=== PATIENT | male | born 1955 | race Caucasian/White ===

== ENCOUNTER 2019-11-23 16:56 | Outpatient (CLI) | payer MEDICARE, MEDICAID, SELFPAY ==
--- NOTE | ~2019-11-23 | XR_ITS ---
EXAMINATION: XR shoulder RT min 2V EXAM DATE: 11/23/2019 17:18 INDICATION: No known recent injury provided at this time. Pain of the right shoulder. Onset of sympto ms 3 weeks ago. TECHNIQUE: The following right shoulder projections obtained: frontal projection with internal rotati on, frontal projection with external rotation, Grashey, and scapular Y view (4+ views). There is no prior study for comparison. FINDINGS: No evidence of right shoulder rotator cuff calcific tendinosis. There is mild glenohumera l and acromioclavicular joint primary osteoarthritis. The glenoid does have unusual congenital unusu al shape to it. There are no acute fractures or dislocations identified. There is no subcutaneous ga s. The soft tissue is unremarkable. There are no radiopaque foreign bodies. IMPRESSION: 1. Congenitally unusual glenoid shape. 2. Mild right shoulder osteoarthritis. Reviewed, dictated and finalized at location A.
== END 2019-11-23 16:57 | disposition home or self-care (01) ==
PROVIDERS: PCP Nurse Practitioner; Visit Provider Nurse Practitioner
DX: M25.511 Pain in right shoulder (principal)
CPT/HCPCS: 73030

== ENCOUNTER 2020-08-31 09:41 | Outpatient (CLI) | payer MEDICARE, SELFPAY ==
[2020-09-01 18:11] LABS: SARS-CoV-2 RNA PCR Negative
== END 2020-08-31 09:42 | disposition home or self-care (01) ==
LOC: CHSLAB 09:44
PROVIDERS: PCP Nurse Practitioner; Visit Provider Nurse Practitioner
DX: J02.9 Acute pharyngitis, unspecified (principal); Z20.822 Contact with and (suspected) exposure to COVID-19
CPT/HCPCS: C9803; U0003; U0005

== ENCOUNTER 2020-10-04 09:29 | Outpatient (CLI) | payer MEDICARE, MEDICAID, SELFPAY ==
--- NOTE | ~2020-10-04 | US_ITS ---
EXAMINATION: US scrotum doppler EXAM DATE: 10/04/2020 10:31 INDICATION: Left groin pain. TECHNIQUE: Multiple grayscale and Doppler images of the testicles and scrotum were obtained bilateral ly. There is no prior study for comparison. FINDINGS: The left inguinal/groin region was scanned and is sonographically unremarkable, no evidence of hernia during Valsalva maneuver Right testicle measures 4.8 x 2.7 x 3.4 cm and is morphologically normal. Low resistance Doppler is[place] w confirmed. The epididymis is unremarkable. There is no hydrocele or varicocele. Left testicle measures 3.5 x 2.0 x 3.8 cm and is morphologically normal. Low resistance Doppler flow confirmed. The epididymis is unremarkable. There is no hydrocele or varicocele. IMPRESSION: Unremarkable testicular/scrotal ultrasound exam. Reviewed, dictated and finalized at location B. WAY HEAD TENDER
== END 2020-10-04 09:30 | disposition home or self-care (01) ==
LOC: CHSIMG 09:31
PROVIDERS: PCP Physician Assistant; Visit Provider Physician Assistant
DX: R10.32 Left lower quadrant pain (principal)
CPT/HCPCS: 76870; 93976

== ENCOUNTER 2020-11-21 12:40 | Outpatient (CLI) | payer MEDICARE, MEDICAID, SELFPAY ==
--- NOTE | ~2020-11-21 | XR_ITS ---
EXAMINATION: XR hip LT min 2V DATE: 11/21/2020 13:02 INDICATION: Chronic left hip pain. TECHNIQUE: 2 views of left hip were obtained. COMPARISON: None. FINDINGS: Bone alignment is normal. No fracture. Left hip joint space is normal. IMPRESSION: 1. Normal left hip. Reviewed, dictated and finalized at location A. IMPRESSION: 1. Normal left hip.
== END 2020-11-21 12:41 | disposition home or self-care (01) ==
LOC: CHSIMG 12:42
PROVIDERS: PCP Physician Assistant; Visit Provider Physician Assistant
DX: M25.552 Pain in left hip (principal)
CPT/HCPCS: 73502

== ENCOUNTER 2021-02-24 09:00 | Outpatient (CLI) | payer MEDICARE, MEDICAID, SELFPAY ==
--- NOTE | ~2021-02-24 | XR_ITS ---
EXAMINATION: XR lumbar spine 2-3V DATE: 02/24/2021 10:29 INDICATION: Lumbar radiculopathy TECHNIQUE: Anteroposterior and lateral views of the lumbar spine, and cone-down lateral view of the l umbosacral junction were obtained. COMPARISON: 08/05/2017 FINDINGS: Bone alignment is normal. There is no fracture. Mild chronic anterior wedging is noted at L 4. There is moderate loss of intervertebral disc space height throughout the lumbar spine. Moderate f acet osteoarthritis is present in the lower lumbar spine. Small degenerative osteophytes project from the anterior endplates of multiple vertebral bodies. The bowel gas pattern is normal. A moderate vol ume of colonic stool is present. IMPRESSION: 1. Mild to moderate lumbar spondylosis and chronic mild anterior wedging of L4 without acute findings or significant interval change. Reviewed, dictated and finalized at location A.
--- NOTE | ~2021-02-24 | MR_ITS ---
EXAMINATION: MR lumbar spine wo con DATE: 02/24/2021 10:30 INDICATION: Lumbar radiculopathy. TECHNIQUE: Magnetic resonance imaging (MRI) of the lumbar spine was performed without intravenous con trast. Sequences included sagittal T2-weighted FSE, sagittal T2-weighted FS FSE, sagittal T1-weighted FSE, and axial T2-weighted FSE. COMPARISON: Lumbar spine radiographs 02/24/2021 FINDINGS: There is 3 mm retrolisthesis of L2 on L3. There is mild chronic anterior wedging of T12, L1 , L2, L3, and L4 vertebral bodies. There is mildly decreased disc height at L2-L3, severely decreased disc height at L3-L4, moderately decreased disc height at L4-L5, and severely decreased disc height at L5-S1 with endplate remodeling. The distal spinal cord signal intensity is normal. The conus medul gregorio is at L1. The following disc levels are specifically discussed: L1-L2: The disc does not extend beyond the endplate margin. There is mild bilateral facet joint osteo arthritis. There is no neural foraminal stenosis. There is no central canal stenosis. L2-L3: The disc is bulging and has an annular fissure. There is mild bilateral facet joint osteoarthr itis. There is mild bilateral neural foraminal stenosis. There is mild central canal stenosis. L3-L4: The disc is bulging and has an annular fissure. There is moderate bilateral facet joint osteoa rthritis. There is moderate bilateral neural foraminal stenosis. There is mild central canal stenosis . L4-L5: The disc is bulging and has an annular fissure. There is severe bilateral facet joint osteoart hritis. There is moderate bilateral neural foraminal stenosis. There is moderate central canal stenos is. L5-S1: The disc is bulging and has an annular fissure. There is severe bilateral facet joint osteoart hritis. There is moderate bilateral neural foraminal stenosis. There is mild central canal stenosis. There is moderate stenosis of the lateral recesses. IMPRESSION: 1. Severe lumbar spondylosis. Reviewed, dictated and finalized at location A.
== END 2021-02-24 09:01 | disposition home or self-care (01) ==
LOC: CHSIMG 09:06
PROVIDERS: PCP Nurse Practitioner Adult Health; Visit Provider Nurse Practitioner Adult Health
DX: M54.16 Radiculopathy, lumbar region (principal)
CPT/HCPCS: 72100; 72148

== ENCOUNTER 2021-03-19 13:03 | Outpatient (RCR) | payer MEDICARE, MEDICAID, SELFPAY ==
--- NOTE | 2021-03-19 14:05 | PTOPEVAL ---
Thank you for referring Jace Lopez Jr. to [facility].? The patient is scheduled to be seen for therapy? ____x/week for ___ weeks. Please review, sign, date and return this plan of care LORNA. I agree with and certify that the following plan of care is medically necessary. Referring Physician Date Admitting Provider: Attending Provider: Rachel Mcadams, RETURNS PROCESSOR Referring Provider: *PT Outpatient Evaluation Start: 03/19/21 13:01 Freq: Status: Active Protocol: Document 03/19/21 13:01 ACR (Rec: 03/19/21 14:04 ACR [id number]) Therapy Assessment Status Assessment Status Assessment Status Evaluation Evaluation Information Problem Diagnosis L hip pain Onset 08/19/20 Subjective Information Patient states that he is Query Text:As Reported By Patient/ having groin pain and is Family unsure why. The patient states that he has gone to many doctors and has no idea why he is having the pain. The patient states that the pain is waking him up at night. 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 Lifting is the biggest difficulty. He states that if he puts a pillow between his legs makes him feel better. He states the pain went away for a bit and now it is back. He states that leaning forward feels He states he would like to get his pain to go away. Prior Level of Function Activity Level (Last 3 Months) Occupation retired Hand Dominance Left Activity of Daily Living Ability Independent Indoor/Home Mobility Independent Community Mobility Independent Stairs Ability Independent Functional Cognition (Planning, Shopping Independent , Taking Medications) Cooking Yes Cleaning Yes Laundry Yes Shopping Yes Driving Yes Pain Assessment Timing of Pain Assessment Timing of Pain Assessment Assessment Pain Scale Pain Scale Used Numeric (1 - 10) Self Report Pain Assessment Left Groin Reported Pain Level 2 Lowest Pain Intensity 0 Greatest Pain Intensity 2 Pain Score Pain Score 2: Self Report Interventions Used Interventions U
--- NOTE | 2021-04-16 09:36 | PTOPEVAL ---
Thank you for referring Jace Lopez Jr. to [facility].? The patient is scheduled to be seen for therapy? ____x/week for ___ weeks. Please review, sign, date and return this plan of care LORNA. I agree with and certify that the following plan of care is medically necessary. Referring Physician Date Admitting Provider: Attending Provider: Rachel Mcadams, BIRTHING NURSE Referring Provider: *PT Outpatient Evaluation Start: 03/19/21 13:01 Freq: Status: Active Protocol: Document 04/16/21 07:37 ACR (Rec: 04/16/21 08:36 ACR [id number]) Therapy Assessment Status Assessment Status Assessment Status Discharge Evaluation Information Problem Diagnosis L hip pain Onset 08/19/20 Subjective Information Patient states that his pain Query Text:As Reported By Patient/ is slightly better, but is Family constantly having to lift his mother and believes that is why his pain continues to be there. He feels that therapy has helped him, but he can do the exercises at home. He is going to work on body mechanics with lifting that he has been taught at therapy and if they pain continues he is going to go back to the doctor. Pain Assessment Timing of Pain Assessment Timing of Pain Assessment Assessment Pain Scale Pain Scale Used Numeric (1 - 10) Self Report Pain Assessment Left Groin Reported Pain Level 1 Greatest Pain Intensity 4 Pain Score Pain Score 1: Self Report Interventions Used Interventions Used By Clinicians Activity or ADL's,Exercise, Traction Lower Extremity Muscle Strength Testing Hip Strength Right Hip Flexion Strength 5 Normal Hip Abduction Strength 4+ Good + Left Hip Flexion Strength 5 Normal Hip Abduction Strength 4+ Good + Knee Strength Right Knee Flexion Strength 5 Normal Knee Extension Strength 5 Normal Left Knee Flexion Strength 5 Normal Knee Extension Strength 5 Normal General Exercise General Exercises Exercise Description - [place] m trunk Query Text:Record Sets, Reps, stabilization level 1, 25 Resistance, and Position minutes - nustep level 5, 10 minutes PT Clinical Summary Clinical Summary Protocol: PTEVCODE PT Clinical Summary Patient is a 65 year old male that has participated in 8
== END 2021-04-16 10:35 | disposition home or self-care (01) ==
LOC: CHSPT 13:03
PROVIDERS: Visit Provider Nurse Practitioner Adult Health
DX: M48.07 Spinal stenosis, lumbosacral region (principal)
CPT/HCPCS: 97012; 97014; 97110; 97161; G0283

== ENCOUNTER 2021-04-20 14:40 | Outpatient (CLI) | payer MEDICARE, MEDICAID, SELFPAY ==
--- NOTE | ~2021-04-20 | XR_ITS ---
EXAMINATION:XR_CERV2-3V_CR DATE: 04/20/2021 14:59 INDICATION: Acute neuropathy of the bilateral upper extremities TECHNIQUE: AP, lateral and odontoid views of the cervical spine are provided. COMPARISON: None FINDINGS: Straightening of the normal cervical lordosis. Odontoid is intact. Normal atlantoaxial interval. No spondylolisthesis or facet subluxation. Vertebral body heights are normal. Moderate disc height loss at C5-C6 with moderate left and severe right uncovertebral osteoarthritis and degenerative endplate o steophytes posteriorly which result in mild central canal stenosis at this level. Mild disc height lo ss at C4-C5. Prevertebral soft tissues are normal. IMPRESSION: 1. Cervical spondylosis moderate at C5-C6, otherwise mild. Reviewed, dictated and finalized at location A.
== END 2021-04-20 14:41 | disposition home or self-care (01) ==
LOC: CHSIMG 14:43
PROVIDERS: PCP Nurse Practitioner; Visit Provider Nurse Practitioner
DX: G56.93 Unspecified mononeuropathy of bilateral upper limbs (principal)
CPT/HCPCS: 72040

== ENCOUNTER 2021-05-31 01:06 | Day surgery (SDC) | payer OTHER, SELFPAY ==
[2021-05-18 13:49] VITALS: BMI 25.7
[2021-05-31 09:59] VITALS: BMI 25.7
[2021-05-31 10:00] VITALS: BP 152/66; PULSE 42; RESP 16; TEMP 36.2; O2SAT 99
--- NOTE | 2021-05-31 10:08 | P.PNAN_ITS ---
Anes - Initial Pre Proc Eval Procedure: Operation Date: 05/31/21 10:00 Proposed Procedures p Screening Colonoscopy - Freedom Gaspar DO Date/Time: 05/31/21 10:08 Surgeon: Freedom Gaspar DO Pre Op Diagnosis: neoplasm screening Patient Data Age: 65 Gender: M Height: 1.83 m Weight: 86.1 kg Last Vital Signs Temp 36.2 C L 05/31/21 10:00 Pulse 42 L 05/31/21 10:00 Resp 16 05/31/21 10:00 BP 152/66 H 05/31/21 10:00 Pulse Ox 99 05/31/21 10:00 Allergies Allergy/AdvReac Type Severity Reaction Status Date / Time cat dander Allergy Severe Anaphylactic Verified 05/31/21 09:54 Shock amoxicillin Allergy Intermediate Hives Verified 05/31/21 09:54 Home Medications Medication Instructions Recorded Confirmed Type glipizide 10 mg PO BID 05/18/21 05/31/21 History ibuprofen 800 mg PO PRN PRN 05/18/21 05/31/21 History lisinopril 5 mg PO DAILY 05/18/21 05/31/21 History metformin 1,000 mg PO BID 05/18/21 05/31/21 History pravastatin 20 mg PO HS 05/18/21 05/31/21 History Patient hx anesthesia problems: none Family hx anesthesia problems: none Results Review: All pre-operative results and documents have been reviewed as part of the pre-operative evaluation. [facility] Past Medical History Medical History (Updated 05/31/21 @ 10:10 by Paul Goodman MD) Back pain Bradycardia Diabetes HTN (hypertension) Hyperlipidemia Social History Social History (System 12/02/19 @ 16:00 by Natali Crouch) Smoking packs per day: 0.25 Smoking cigarettes per day: 5.0 Years smoked: 15 Smoking pack-years: 3.75 Smoking status: Current every day smoker Tobacco type: cigarettes Alcohol intake: never Substance use: never Substance use type: does not use Living arrangements: with family Spiritual care concerns: No Anes - Eval Final PreProcedure Day of Procedure 05/31/21 10:08 Patient weight: normal Heart: regular rate and rhythm Lungs: clear to auscultation and normal air movement Airway: Mallampati scale class II Neurological: alert and oriented Last oral intake: >/= 8 hours ASA classification: III Emergent: no Anesthetic plan: proceed Anesthesia type and monitoring: general GIVS Results Review: All pre-operative results and documents have been reviewed as part of the pre-operative evaluation. Informed Consent: The patient's anesthetic plan and its attendant risks and benefits were discussed with the patient/family/POA. Questions were solicited and answers provided to the satisfaction of the patient/family/POA.
[2021-05-31] MEDS: LACTATED RINGERS 1,000 ML 150 ML IV CONT (10:17)
[2021-05-31 10:23] LABS: Glucose Point of Care 114 mg/dl (65-105)
--- NOTE | 2021-05-31 10:54 | PM.IMHP ---
H&P: HPI History of Present Illness Date/Time: 05/31/21 10:54 Chief Complaint: history of colon polyps, family history of colon polyps Narrative: this is a 65-year-old man who presents for colonoscopy. His last colonoscopy was several years ago and he thinks a couple polyps were removed. His mom also has a history of multiple colon polyps. He denies any hematochezia or melena and denies family history of colon cancer. Review of Systems Review of Systems: All systems reviewed & are unremarkable except as noted in HPI and below Constitutional: Constitutional: Denies chills, Denies fever(s), Denies headache(s) and Denies weight loss Eyes: Eyes: Denies change in vision ENT: Denies dizziness, Denies headache(s), Denies neck mass and Denies throat swelling Cardiovascular: Cardiovascular: Denies chest pain, Denies lightheadedness and Denies dyspnea Respiratory: Respiratory: Denies cough, Denies dyspnea and Denies wheezing Gastrointestinal: Gastrointestinal: Denies abdominal pain, Denies change in bowel habits, Denies nausea and Denies vomiting Genitourinary: Genitourinary: Denies hematuria and Denies dysuria Musculoskeletal: Musculoskeletal: Reports as per HPI Integumentary/Breasts: Skin/Breast: Reports as per HPI Neurologic: Denies dizziness and Denies headache(s) Allergic/Immunologic: Allergic/Immunologic: Denies throat swelling and Denies wheezing [facility] Past Medical History Medical History (Updated 05/31/21 @ 10:56 by Freedom Gaspar DO) Back pain Bradycardia Diabetes HTN (hypertension) Hyperlipidemia Social History Social History (System 12/02/19 @ 16:00 by Natali Crouch) Smoking packs per day: 0.25 Smoking cigarettes per day: 5.0 Years smoked: 15 Smoking pack-years: 3.75 Smoking status: Current every day smoker Tobacco type: cigarettes Alcohol intake: never Substance use: never Substance use type: does not use Living arrangements: with family Spiritual care concerns: No Meds Home Medications and Allergies Home Medications Medication Instructions Recorded Confirmed Type glipizide 10 mg PO BID 05/18/21 05/31/21 History ibuprofen 800 mg PO PRN PRN 05/18/21 05/31/21 History lisinopril 5 mg PO DAILY 05/18/21 05/31/21 History metformin 1,000 mg PO BID 05/18/21 05/31/21 History pravastatin 20 mg PO HS 05/18/21 05/31/21 History Allergies Allergy/AdvReac Type Severity Reaction Status Date / Time cat dander Allergy Severe Anaphylactic Verified 05/31/21 09:54 Shock amoxicillin Allergy Intermediate Hives Verified 05/31/21 09:54 Vital Signs Vital Signs - 24 hr 05/31/21 10:00 Temperature 36.2 C L Pulse Rate 42 L Respiratory Rate 16 Blood Pressure 152/66 H Pulse Oximetry 99 Exam Const: General: no acute distress and alert Orientation/consciousness: patient oriented x3 HENMT: Head: normocephalic and atraumatic Ears: hearing grossly normal bilaterally General nose exam: Normal nares present Mouth: Yes Normal oral and palatal mucosa present Eyes: Periorbital: periorbital findings normal Sclera: sclerae normal EOM: EOMs intact bilaterally Neck: Neck: normal visual inspection, no lymphadenopathy and trachea midline Chest: Chest palpation & inspection: normal inspection of the chest Resp: Effort & Inspection: normal respiratory effort Auscultation: clear to auscultation bilaterally Cardio: Jugular venous distension: no JVD Rate: regular rate Rhythm: regular rhythm Heart sounds: S1 normal heart sound present and S2 normal heart sound present Peripheral pulses: Peripheral pulses 2+ throughout GI: Inspection: normal to inspection GI Palp: Yes Soft to palpation, No Tenderness to palpation present (GI), No Guarding due to palpation present (GI) and No Rebound tenderness present Percussion: Yes normal to percussion Auscultation: normal bowel sounds : General: Yes no CVA tenderness Back/Spine/Pelvis: Back: no CVA tenderness Neuro: G
[2021-05-31 11:50] VITALS: BP 80/44; PULSE 49; RESP 15; O2SAT 95
[2021-05-31 12:00] VITALS: BP 104/66; PULSE 56; RESP 21; O2SAT 99
[2021-05-31 12:10] VITALS: BP 126/66; PULSE 43; RESP 17; O2SAT 99
== END 2021-05-31 12:26 | disposition home or self-care (01) ==
PROVIDERS: PCP Nurse Practitioner; Visit Provider Surgery
PROC: 0DJD8ZZ Inspection of Lower Intestinal Tract, Via Natural or Artificial Opening Endoscopic (ICD-10-PCS; CPT 45378; principal; 2021-05-31 10:00)
DX: Z12.11 Encounter for screening for malignant neoplasm of colon (principal); D12.2 Benign neoplasm of ascending colon; D12.3 Benign neoplasm of transverse colon; D12.4 Benign neoplasm of descending colon; D12.5 Benign neoplasm of sigmoid colon; D12.8 Benign neoplasm of rectum; K62.89 Other specified diseases of anus and rectum; Z83.71 Family history of colonic polyps; I10 Essential (primary) hypertension; E11.9 Type 2 diabetes mellitus without complications; E78.5 Hyperlipidemia, unspecified; F17.210 Nicotine dependence, cigarettes, uncomplicated; Z79.84 Long term (current) use of oral hypoglycemic drugs
CPT/HCPCS: 45385; 82948; 88305; J2704; J7120

== ENCOUNTER 2021-10-19 18:18 | Emergency (ER) | payer OTHER, SELFPAY ==
[2021-10-19 18:25] VITALS: BP 177/75; PULSE 44; RESP 20; TEMP 35.9; O2SAT 99
--- NOTE | 2021-10-19 18:38 | ECG_ITS ---
Measurements Intervals [place] Rate: 39 P: 97 TN: 87 QRS: 75 QRSD: 109 T: 60 QT: 426 QTc: 347 Interpretive Statements ECTOPIC ATRIAL BRADYCARDIA OTHERWISE UNREMARKABLE ECG NO PREVIOUS TRACING FOR COMPARISON Electronically Signed On 10-20-2021 8:45:06 CDT by Vadim Samano M.D.
--- NOTE | 2021-10-19 18:46 | ED.GENADULT ---
HPI - General Adult General Chief complaint: Recheck/Abnormal Lab/Rx Stated complaint: high blood pressure Source: patient Mode of arrival: ambulatory History of Present Illness HPI narrative: Jace is a 65M with a PMH of inappropriate tachycardia (asymptomatic) that was seen in the emergency department for elevated BP. He reportedly had a BP of greater than 220 systolic and was referred here. He has not had any confusion, CP, SOB or syncope or lightheadedness. Related Data Home Medications Medication Instructions Recorded Confirmed glipizide 10 mg PO BID 05/18/21 10/19/21 ibuprofen 800 mg PO PRN PRN 05/18/21 10/19/21 lisinopril 5 mg PO DAILY 05/18/21 10/19/21 metformin 1,000 mg PO BID 05/18/21 10/19/21 pravastatin 20 mg PO HS 05/18/21 10/19/21 Allergies Allergy/AdvReac Type Severity Reaction Status Date / Time cat dander Allergy Severe Anaphylactic Verified 05/31/21 09:54 Shock amoxicillin Allergy Intermediate Hives Verified 05/31/21 09:54 Review of Systems Constitutional: Constitutional: Reports no additional constitutional complaints Eyes: Eyes: Reports no additional eye complaints ENT: Reports system reviewed and no additional complaints, except as documented Cardiovascular: Cardiovascular: Reports as per HPI Respiratory: Respiratory: Reports no additional respiratory complaints Gastrointestinal: Gastrointestinal: Reports no additional gastrointestinal complaints Genitourinary: Genitourinary: Reports no additional male genitourinary complaints Musculoskeletal: Musculoskeletal: Reports no additional musculoskeletal complaints Integumentary/Breasts: Skin/Breast: Reports system reviewed and no additional complaints, except as docu Neurologic: Reports system reviewed and no additional complaints, except as documented Psychiatric: Psychiatric: Reports no additional psychiatric complaints Endocrine: Endocrine: Reports no additional endocrine complaints Hematologic/Lymphatic: Hematologic/Lymphatic: Reports no additional hematologic/lymphatic complaints Allergic/Immunologic: Allergic/Immunologic: Reports no additional allergic/immunologic complaints [facility] Past Medical History Medical History Back pain Bradycardia Diabetes HTN (hypertension) Hyperlipidemia Social History Social History Smoking packs per day: 0.25 Smoking cigarettes per day: 5.0 Years smoked: 15 Smoking pack-years: 3.75 Smoking status: Current every day smoker Tobacco type: cigarettes Alcohol intake: never Substance use: never Substance use type: does not use Spiritual care concerns: No Exam Const: General: no acute distress and alert; No confusion Orientation/consciousness: patient oriented x3 Limitations: No altered mental status HENMT: Head: normal to inspection Eyes: Conjunctivae: conjunctivae normal Pupils: Equal, round and reactive pupils present Neck: Neck: normal visual inspection Chest: Chest palpation & inspection: normal inspection of the chest Resp: Effort & Inspection: normal respiratory effort Cardio: Rate: regular rate and bradycardic Rhythm: regular rhythm Heart sounds: no murmurs Skin: General skin exam: normal color Rashes: no rashes Neuro: General: patient oriented x3 and moves all extremities Extrem: General: normal to inspection Psych: Mental Status: mental status grossly normal Course Course Emergency Course: EKG showed sinus bradycardia with a rate of 39, normal axis, but no ST elevation/depression labs largely unremarkable. Vital Signs Vital signs: Vital Signs Temperature 96.6 F L 10/19/21 18:25 Pulse Rate 44 L 10/19/21 18:25 Respiratory Rate 20 10/19/21 18:25 Blood Pressure 177/75 H 10/19/21 18:25 Pulse Oximetry 99 10/19/21 18:25 Temperature 96.6 F L 10/19/21 18:25 Pulse Rate 42 L 10/19/21 19:22 Respiratory
--- NOTE | 2021-10-19 19:04 | PC.NURSE ---
report to leif huff. no concerns or questions.
[2021-10-19 19:12] LABS: Anion Gap 9 mmol/L (8-16); Blood Urea Nitrogen 13 mg/dL (7-18); Calcium 9.3 mg/dL (8.5-10.1); Carbon Dioxide 28 mmol/L (21-32); Chloride 101 mmol/L (98-108); Estimated CRCL calculation 63 ml/min; Estimated Glomerular Filt Rate > 60; Glucose 121 mg/dL (70-99); Osmolality Calculated 287 mOsm/kg (285-295); Potassium 4.4 mmol/L (3.5-5.1); Sodium 138 mmol/L (136-145); Troponin I 8.1 ng/L (0.00-60.4)
[2021-10-19 19:22] VITALS: BP 134/80; PULSE 42; RESP 18; O2SAT 98
[2021-10-19] MEDS: amLODIPine BESYLATE 5 MG TABLET PO (19:32)
[2021-10-19 19:47] VITALS: BP 157/84; PULSE 44; RESP 20; TEMP 36.4; O2SAT 98
[2021-10-19 19:49] VITALS: BP 157/84; PULSE 44
== END 2021-10-19 19:50 | disposition home or self-care (01) ==
PROVIDERS: Emergency Provider Family Medicine; PCP Nurse Practitioner
DX: I10 Essential (primary) hypertension (principal); E11.9 Type 2 diabetes mellitus without complications; E78.5 Hyperlipidemia, unspecified; F17.200 Nicotine dependence, unspecified, uncomplicated
CPT/HCPCS: 36415; 80048; 84484; 93005; 99284; A9270

== ENCOUNTER 2022-04-19 09:17 | Outpatient (CLI) | payer OTHER, SELFPAY ==
--- NOTE | ~2022-04-19 | CT_ITS ---
EXAMINATION: CT brain wo con DATE: 04/19/2022 10:01 INDICATION: Left mastoid tenderness for 3 months. Preauricular cellulitis TECHNIQUE: Computed tomography (CT) of the head was performed without intravenous contrast. The mA wa s adjusted according to patient size. Iterative reconstruction technique was employed. Exam dose: 60 5.33 mGy-cm total exam DLP. COMPARISON: None FINDINGS: No intracranial mass lesion or hemorrhage or cerebrovascular accident. No midline shift or mass effect effect. Normal ventricular size. Normal lowe-white matter differentiation. No subdural or epidural hematoma. The orbital contents appear normal. Included soft tissues at the ears appear unremarkable. Normal development and aeration of the mastoid air cells is noted bilaterally. There is patchy soft tissue thickening of the ethmoid air cells bilaterally. Mild right and minimal l eft frontal mucoperiosteal soft tissue thickening. The sphenoid sinuses superior aspect of the maxill devon sinuses are unremarkable. No fracture or bone destruction of the cranial vault. IMPRESSION: Normal mastoid air cells and mastoid process is; no skull fracture or bone destruction Mild bilateral frontal sinus and patchy bilateral ethmoid soft tissue thickening No significant intracranial abnormality Reviewed, dictated and finalized at Location A. Reviewed, dictated and finalized at location B. IMPRESSION: Normal mastoid air cells and mastoid process is; no skull fracture or bone destruction Mild bilateral frontal sinus and patchy bilateral ethmoid soft tissue thickenin g No significant intracranial abnormality
== END 2022-04-19 09:18 | disposition home or self-care (01) ==
LOC: CHSIMG 09:19
PROVIDERS: PCP Physician Assistant; Visit Provider Physician Assistant
DX: L03.211 Cellulitis of face (principal)
CPT/HCPCS: 70450

== ENCOUNTER 2023-10-01 08:49 | Outpatient (CLI) | payer OTHER, SELFPAY ==
[2023-10-01 09:06] LABS: Basophils Absolute Auto 0.04 K/mm3 (0.00-0.10); Basophils Percent Auto 0.7 % (0.0-1.0); Eosinophils Absolute Auto 0.53 K/mm3 (0.02-0.50); Eosinophils Percent Auto 8.9 % (1.0-6.0); Hematocrit 39.6 % (37.0-46.0); Hemoglobin 13.1 g/dL (12.4-15.3); Immature Granulocyte Absolute 0.01 K/mm3 (0.00-0.00); Immature Granulocyte Percent A 0.2 % (0.0-0.0); Lymphocytes Percent Auto 38.7 % (18.0-42.0); Mean Corpuscular HGB Conc 33.1 g/dL (32.0-36.0); Mean Corpuscular Hemoglobin 29.6 pg (27.0-31.0); Mean Corpuscular Volume 89.4 fL (78.0-102.0); Mean Platelet Volume 10.5 fl (8.7-11.0); Monocytes Absolute Auto 0.58 K/mm3 (0.10-0.90); Monocytes Percent Auto 9.7 % (2.0-11.0); Neutrophils Absolute Auto 2.5 K/mm3 (1.7-7.2); Neutrophils Percent Auto 41.8 % (50.0-70.0); Platelet Count Result 171 K/mm3 (150-420); Red Blood Count 4.43 M/mm3 (4.70-6.10); Red Cell Distribution Width 12.9 % (11.6-14.4)
[2023-10-01 10:07] LABS: Alanine Aminotransferase 25 U/L (16-63); Albumin Level 4.1 g/dL (3.4-5.0); Alkaline Phosphatase 58 U/L (46-116); Anion Gap 7 mmol/L (8-16); Aspartate Amino Transferase 13 U/L (15-37); Bilirubin,Total 0.3 mg/dL (0.00-1.00); Blood Urea Nitrogen 19 mg/dL (7-18); Carbon Dioxide 30 mmol/L (21-32); Chloride 103 mmol/L (98-108); Cholesterol 138 mg/dL (0-200); Estimated Glomerular Filt Rate > 60; Glucose 85 mg/dL (70-99); HDL Direct 49 mg/dL (40-60); LDL Cholesterol Calculated 70 mg/dL (<130); Osmolality Calculated 291 mOsm/kg (285-295); Potassium 4.4 mmol/L (3.5-5.1); Prostate Specific Antigen 2.5 ng/mL (< OR = 4.0); Sodium 140 mmol/L (136-145); Thyroid Stimulating Hormone 1.47 uIU/mL (0.36-3.74); Total Protein 6.3 g/dL (6.4-8.2); Triglycerides 95 mg/dL (0-150)
== END 2023-10-01 08:50 | disposition home or self-care (01) ==
PROVIDERS: PCP Physician Assistant; Visit Provider Physician Assistant
DX: E11.65 Type 2 diabetes mellitus with hyperglycemia (principal); E78.5 Hyperlipidemia, unspecified; I10 Essential (primary) hypertension; Z12.5 Encounter for screening for malignant neoplasm of prostate; Z13.31 Encounter for screening for depression
CPT/HCPCS: 36415; 80053; 80061; 83036; 84153; 84443; 85025; G0103

== ENCOUNTER 2024-02-03 08:42 | Outpatient (CLI) | payer OTHER, SELFPAY ==
[2024-02-03 09:08] LABS: Hematocrit 38.1 % (37.0-46.0); Hemoglobin 12.7 g/dL (12.4-15.3); Mean Corpuscular HGB Conc 33.3 g/dL (32-36); Mean Corpuscular Hemoglobin 29.6 pg (27.0-31.0); Mean Corpuscular Volume 88.8 fL (78.0-102.0); Mean Platelet Volume 10.9 fl (8.7-11.0); Platelet Count Result 159 K/mm3 (150-420); Red Blood Count 4.29 M/mm3 (4.70-6.10); Red Cell Distribution Width 13.1 % (11.6-14.4); White Blood Count 7.1 K/mm3 (4.8-10.8)
[2024-02-03 09:27] LABS: Hemoglobin A1C 6.6 % (<5.7)
[2024-02-03 10:00] LABS: Alanine Aminotransferase 41 U/L (16-63); Alkaline Phosphatase 81 U/L (46-116); Anion Gap 9 mmol/L (4-12); Aspartate Amino Transferase 35 U/L (15-37); Bilirubin,Total 0.5 mg/dL (0.00-1.00); Blood Urea Nitrogen 16 mg/dL (7-18); Calcium 9.2 mg/dL (8.5-10.1); Carbon Dioxide 28 mmol/L (21-32); Chloride 101 mmol/L (98-108); Cholesterol 117 mg/dL (0-200); Estimated Glomerular Filt Rate > 60; Glucose 98 mg/dL (70-99); HDL Direct 32 mg/dL (40-60); LDL Cholesterol Calculated 66 mg/dL (<130); Osmolality Calculated 287 mOsm/kg (285-295); Potassium 4.6 mmol/L (3.5-5.1); Sodium 138 mmol/L (136-145); Thyroid Stimulating Hormone 2.02 uIU/mL (0.36-3.74); Total Protein 6.4 g/dL (6.4-8.2); Triglycerides 96 mg/dL (0-150)
[2024-02-03 10:29] LABS: Band Neutrophils Percent 0 % (0-6); Basophils Absolute Manual 0.07 K/mm3 (0-0.1); Basophils Percent Manual 1 % (0-1); Eosinophils Absolute Manual 0.14 K/mm3 (0.02-0.50); Eosinophils Percent Manual 2 % (1-6); Lymphocytes Absolute Manual 3.69 K/mm3 (1.1-4.5); Lymphocytes Percent Manual 52 % (18-44); Monocytes Absolute Manual 0.42 K/mm3 (0.1-0.90); Monocytes Percent Manual 6 % (3-9); Neutrophils Absolute Manual 2.76 K/mm3 (1.3-6.7); Neutrophils Percent Manual 39 % (46-73); Platelet Estimate Adequate (Adequate); Total Cells Counted 100
[2024-02-04 08:54] LABS: T4 Thyroxine 9.8 mcg/dL (4.9-10.5)
[2024-02-04 09:54] LABS: Vitamin D 25 Hydroxy 25 ng/mL (30-100)
== END 2024-02-03 08:43 | disposition home or self-care (01) ==
DX: I10 Essential (primary) hypertension (principal); E11.9 Type 2 diabetes mellitus without complications; E78.5 Hyperlipidemia, unspecified; E55.9 Vitamin D deficiency, unspecified
CPT/HCPCS: 36415; 80053; 80061; 82306; 83036; 84436; 84443; 85025

== ENCOUNTER 2024-04-13 08:58 | Outpatient (CLI) | payer OTHER, SELFPAY ==
--- NOTE | 2024-04-13 | PFT_ITS ---
This report was originally signed by Dr. Janeen Gusman on 04/20/242011. PFT Procedure Performed PFT Procedure Performed Spirometry with Pre/Post Bronchodilator Plethysmography (Lung Vol) Diffusing Cap (DLCO) Flow Vol Loop PFT Interpretation DOS: 04/13/2024 REQUESTING: HALEY Hinds REASON FOR TESTING: Shortness of breath PULMONARY FUNCTION TESTS Results are reliable and reproducible. Spirometry: The pre-bronchodilator FEV1 is 2.98 L, 87%. The pre-bronchodilator FVC is 4.74 L, 107%. The FEV1/FVC ratio is 63%, decreased. After bronchodilator, the FEV1 is 3.33 L, 97%, +12%. The FVC is 4.95 L, 112%, +4%. The FEV1/FVC ratio is 67%. Lung volumes: The total lung capacity is 7.02 L, 100%. The residual volume is 2.28 L, 86%. The RV/TLC is 32%. Airway resistance is increased. Diffusion: DLCO is 23.9, 109%. The DLCO/VA is 3.34, 93%. Flow volume loop: The flow volume loop is normal. IMPRESSION: This study shows a mild obstructive ventilatory defect with good response to bronchodilator, normal lung volumes and normal diffusion. There are no prior studies for comparison. Janeen Gusman MD This report may have been done utilizing a voice recognition system. Attempts have been made to correct errors. However, there may be uncorrected grammatical, spelling, and recognition errors present. Report Initialized date/time: Janeen Gusman MD 04/20/242002 Electronically signed by: Janeen Gusman MD 04/20/24[address] [facility]
== END 2024-04-13 08:59 | disposition home or self-care (01) ==
LOC: CHSCARD 09:01
PROVIDERS: PCP Nurse Practitioner Family; Visit Provider Nurse Practitioner Family
DX: R06.02 Shortness of breath (principal); R94.2 Abnormal results of pulmonary function studies
CPT/HCPCS: 94060; 94726; 94729

== ENCOUNTER 2024-04-16 15:21 | Outpatient (CLI) | payer OTHER, SELFPAY ==
--- NOTE | ~2024-04-16 | CT_ITS ---
EXAMINATION:CT lung screening DATE: 04/16/2024 15:43 INDICATION: Personal history of nicotine dependence. TECHNIQUE: Computed tomography (CT) of the chest was performed without intravenous contrast. Automate d exposure control and iterative reconstruction technique were employed. The dose-length product (DLP ) was 97.13 mGy-cm. COMPARISON: None. FINDINGS: The lungs demonstrate minimal atelectasis. No pleural effusion. The heart size is normal. T here are coronary artery calcifications. There are calcifications of the aortic valve. No pericardial effusion. There is mild thoracic spondylosis. IMPRESSION: 1. Lung-RADS category 1: Negative. Continue annual screening with noncontrast low-dose chest CT in 12 months. Reviewed, dictated and finalized at location A. IMPRESSION: 1. Lung-RADS category 1: Negative. Continue annual screening with noncontrast l ow-dose chest CT in 12 months.
--- NOTE | 2024-04-20 20:02 | WPDPFTINT ---
PFT Procedure Performed PFT Procedure Performed Spirometry with Pre/Post Bronchodilator Plethysmography (Lung Vol) Diffusing Cap (DLCO) Flow Vol Loop PFT Interpretation DOS: 04/13/2024 REQUESTING: HALEY Hinds REASON FOR TESTING: Shortness of breath PULMONARY FUNCTION TESTS Results are reliable and reproducible. Spirometry: The pre-bronchodilator FEV1 is 2.98 L, 87%. The pre-bronchodilator FVC is 4.74 L, 107%. The FEV1/FVC ratio is 63%, decreased. After bronchodilator, the FEV1 is 3.33 L, 97%, +12%. The FVC is 4.95 L, 112%, +4%. The FEV1/FVC ratio is 67%. Lung volumes: The total lung capacity is 7.02 L, 100%. The residual volume is 2.28 L, 86%. The RV/TLC is 32%. Airway resistance is increased. Diffusion: DLCO is 23.9, 109%. The DLCO/VA is 3.34, 93%. Flow volume loop: The flow volume loop is normal. IMPRESSION: This study shows a mild obstructive ventilatory defect with good response to bronchodilator, normal lung volumes and normal diffusion. There are no prior studies for comparison. Janeen Gusman MD
== END 2024-04-16 15:22 | disposition home or self-care (01) ==
PROVIDERS: PCP Nurse Practitioner Family; Visit Provider Nurse Practitioner Family
DX: Z12.2 Encounter for screening for malignant neoplasm of respiratory organs (principal); Z87.891 Personal history of nicotine dependence; R94.2 Abnormal results of pulmonary function studies
CPT/HCPCS: 71271

== ENCOUNTER 2024-08-27 07:30 | Outpatient (CLI) | payer OTHER, SELFPAY ==
--- OUTSIDE RECORDS SUMMARY | 2024-08-27 07:36 | XMS_ITS | CONTINUITY OF CARE DOCUMENT ---
Author Name lizette bauer Address Unknown Organization [facility] Office Address [address] [facility] [address] [address] [place] [address] Phone [phone] Care Team Providers Care Substation Technician Name Role Phone Juan Manuel GAMBOA, Minda Unavailable Dinorah Ward MD Unavailable [phone] Dinorah Ward MD Unavailable PROBLEMS Condition Status Date Provider Notes Family History Coronary Hear t Disease male < 55: active ? Kiki Blunt Family History Coronary Hear t Disease male < 55: active ? Kiki Blunt Family History of Sudden Cardiac : active ? 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 Kiki Blunt Bradycardia, sinus active Kiki Blunt ENCOUNTERS Date Type Provider Location Encounter Diag nosis - In-person encounter Office Visit Minda Zambrano MD [place] [facility] Family History Coronary Heart Disease male < 55:Family History Coronary Heart Disease male < 55:Family History of Sudden Cardiac :HTN essentialGERDDiabetes mellitusCluster headaches and other trigeminal autonomic cephalgiasBradycardia, sinus VITAL SIGNS Date Observation Value Provider blood pressure, diastolic 80 mm[Hg] Delfin Zambrano MD blood pressure, systolic 130 mm[Hg] Narciso Zambrano MD Body Mass Index (Ratio) 26.36 kg/m2 Tru Zambrano MD pulse rate 50 /min Minda Zambrano MD oxygen saturation, oximetry 97 % Minda Zambrano MD respiratory rate E&M 16 /min Tonya Zambrano MD weight E&M 189 [lb_av] Minda Zambrano MD height E&M 71 [in_i] Minda Zambrano MD ALLERGIES No Known Drug Allergies HISTORY OF MEDICATION USE Medication Status Instructions Dates Provider Indications Com ments TRIAMCINOLONE ACETONIDE 0.5 % EXTERNAL CREAM active Minda Zambrano MD ASPIRIN 81 MG ORAL TABLET active ONE TAB. DAILY Minda Zambrano MD LISINOPRIL 2.5 MG ORAL TABLET active ONE TAB. DAILY Minda Zambrano MD METFORMIN HCL 1000 MG ORAL TABLET active 1 tablet bid Minda Zambrano MD SOCIAL HISTORY Date Observation Value Provider social history reviewed E&M revi ewed - no changes required Minda Zambrano MD social history E&M Ethnicity: Ca ucasian S moking History: P atient currently smokes every day. P atient has been counseled to quit. Minda Zambrano MD smoking/tobacco cess ation, patient education and counseling yes Minda Zambrano MD smoking status Current every day smoker M debra Zambrano MD FAMILY HISTORY Family Member Condition Mother Family History of Di abetes: Mother Family History of Di abetes: Mother Family History of Di abetes: Father Family History of Dowd dden Cardiac : Father Family History of Di abetes: Father Family History Coron devon Heart Disease male < 55: Father Family History Coron devon Heart Disease male < 55: INSURANCE PROVIDERS Payer name Policy type / Coverage type [facility] HEALTHCARE AND FAMILY [facility] Medicaid 2 [id number] TREATMENT PLAN Date Name Performer : O rders: C omplete Echo (CPT-54256) M obile Cardiac Tele (CPT-61956) Minda Zambrano MD : H is updated medication list for this problem includes: Aspirin 81 Mg Tabs (Aspirin) ..... One tab. daily Lisinopril 2.5 Mg Tabs (Lisinopril) ..... One tab. daily Metformin Hcl 1000 Mg Tabs (Metformin hcl) ..... 1 tablet bid Orders: C omplete Echo (CPT-[id number]) M obile Cardiac Tele (CPT-64293) Minda Zambrano MD : H is updated medication list for this problem includes: Aspirin 81 Mg Tabs (Aspirin) ..... One tab. daily Lisinopril 2.5 Mg Tabs (Lisinopril) ..... One tab. daily Orders: C omplete Echo (CPT-[id number]) M obile Cardiac Tele (CPT-89702) Minda Zambrano MD : H is updated medication list for this problem includes: Aspirin 81 Mg Tabs (Aspirin) ..... One tab. daily Lisinopril 2.5 Mg Tabs (Lisinopril) ..... One tab. daily Orders: C omplete Echo (CPT-08853) M obile Cardiac Tele (CPT-54735) Minda Zambrano MD : O rders: C omplete Echo (CPT-65890) M obile Cardiac Tele (CPT-94694) Minda Zambrano MD Date Name Mobile Cardiac Tele Complete Echo
--- OUTSIDE RECORDS SUMMARY | 2024-08-27 07:36 | XMS_ITS | Clinical Summary ---
Author Organization [facility] Address [address] [place] [id number] Phone Care Team Providers Care Business Solutions Architect Name Role Phone CLAUDIA GEORGE PA-C Primary Care Provider [phone] ANGELA BENTLEY MD [facility] [phone] Reason for Visit and Chief Complaint The Chief Complaint is: PT STATES THAT HE WAS REFERRED BY CLAUDIA GEORGE FOR GROIN PAIN/LEFT HIP PAIN Plan of Treatment Instructions to patient Intervention and counseling on cessation of tobacco use : Patient recieved smoking cessation handout Last Documented On 8:58AM ; [facility] Assessments Includes: Assessments from this encounter Findings - Left Hip pain [M25.552 - Pain in left hip] - Last Documented On 03/12/2021 9:01AM ; [facility] - Lumbago [M54.5 - Low back pain] - Last Documented On 03/12/2021 9:01AM ; [facility] - Lumbar radiculopathy [M54.16 - Radiculopathy, lumbar region] - Last Documented On 03/12/2021 9:01AM ; [facility] - Chronic pain syndrome [G89.4 - Chronic pain syndrome] - Last Documented On 03/12/2021 9:01AM ; [facility] Instructions Includes: Instructions from this encounter Instructions to patient Intervention and counseling on cessation of tobacco use : Patient recieved smoking cessation handout Last Documented On 8:58AM ; [facility] Medical Equipment - Implanted Devices Includes: Current Devices No Medical Equipment Recorded Medications Includes: Medications discussed during this encounter and other current Medications Current Medications (continue as prescribed) glipiZIDE 10 MG Oral Tablet 02/16/2021 Provider: Diagnosis: Last Documented On 11:44AM By Mariza MOTTA ; [facility] Lisinopril 5 MG Oral Tablet 02/16/2021 Provider: Diagnosis: Last Documented On 11:45AM By Mariza MOTTA ; [facility] metFORMIN HCl 1000 MG Oral Tablet 02/16/2021 Provide r: Diagnosis: Last Documented On 11:46AM By Mariza MOTTA ; [facility] Pravastatin Sodium 20 MG Oral Tablet 02/16/2021 Prov ider: Diagnosis: Last Documented On 1 11:46AM By Mariza MOTTA ; [facility] Medications Administered Includes: Administered Medications from this encounter No Administered Medications Recorded Vital Signs Includes: Vital Signs from this encounter Vital Name 02/16/2021 09:01A Blood Pressure Sitting R 156/92 Pulse Rate-Sitting (bpm) 45 Height (in) 71 Weight (lb) 196 Body Mass Index (kg/m2) 27.3 Body Surface Area (m2) 2.1 Pain Level 8 Oxygen Saturation (%) 97 Last Documented: On 02/16/2021 9:02AM ; [facility] Results Includes: Results discussed during this encounter No Results Recorded For Specified Dates History of Present Illness Includes: History of Present Illness from this encounter HPI - Allergy list reviewed - Problem list reviewed - Medication reconciliation performed - Prescription Drug Monitoring Program website checked. - Last dose of medication? - Pain comes/goes - Pain aggravated when sleeping - Primary pain location Groin - Primary pain duration Bedtime - Secondary pain duration Twenty minutes - Pain is deep - Pain aggravated lying down - Chest pain radiating to the right side - To the left side Discussion: Mr. Christine is a pleasant 65 y.o. male who was referred by LAURA Galvan for evaluation and treatment of left hip/groin pain. He reports that at times this pain radiates into his right testicle and makes his toes curl under. He reports that the pain was starting to improve, however he is taking care of his 92 y.o. mother who had a recent fall. He has been helping care for her and this has aggravated his pain. He at times take tylenol or Kait with minimal relief. He is not interested in additional medication management at this time. He had a recent hip x-ray that was unremarkable. He reports having a distant history of bulging discs in his back. Most recent lumbar imaging was approximately 15 years ago. Due to the nature of the condition and recent benign imaging results, will update lumbar imaging and have patient follow up. Imaging: All relevant imaging available was personally reviewed with the patient today with the following tests and results noted: 11/21/20 Left Hip X-ray: normal left hip Social History Description Last Updated Smoker 02/16/2021 Last Documented On 9:01AM ; [facility] [PHQ-2] Patient Health Questionnaire 2 i tem total score: 15 (Scale: 0-6) 02/16/2021 Last Documented On 9:01AM ; [facility] No consumption of alcohol 02/16/2021 Last Documented On 9:01AM ; [facility] Not using drugs 02/16/2021 Last Documented On 9:01AM ; [facility] Smoking packs of cigarettes per day One fifth 02/16/2021 Last Documented On 9:01AM ; [facility] Smoking Status Unknown Procedures and Surgical History Includes: Procedures from this encounter Procedures Code Diagnosis Performing Provider Service L ocation Service Date intervention and counseling on cessation of tobacco use : Patient recieved smoking cessation handout 4000F Last Documented On 8:58AM ; [facility] use of tobacco assessment performed 1000F Last Documented On 8:58AM ; [facility] review of medications documented 1160F Last Documented On 8:55AM ; [facility] Clinical summary provided to patient Last Documented On 1 8:55AM ; [facility] Surgical History Last Updated No Pacemaker 02/16/2021 Last Documented On 9:01AM ; [facility] Medical History Includes: Medical History addressed during this encounter Description Last Updated Currently wearing eyeglasses 02/16/2021 Last Documented On 9:01AM ; [facility] No Pain Pump 02/16/2021 Last Documented On 9:01AM ; [facility] No Spinal cord stimulator 02/16/2021 Last Documented On 9:01AM ; [facility] Please list all illnesses/co nditions you have been diagnosed with: Diabetes high blood pressure cluster headaches 02/16/2021 Last Documented On 1 9:01AM ; [facility] Please list all surgeries: None 02/17/20 Last Documented On 1 9:01AM ; [facility] Family History Includes: Family History addressed during this encounter Description Last Updated Family history of ischemic heart disease 02/16/2021 Last Documented On 1 9:01AM ; [facility] Review of Systems Includes: Review of Systems from this encounter Systemic: No systemic symptoms other than noted. Head: No head symptoms other then noted. Headache. Neck: No neck pain. Otolaryngeal: No otolaryngeal symptoms other than noted. Cardiovascular: No cardiovascular symptoms other than noted. Pulmonary: No pulmonary symptoms other than noted. Gastrointestinal: No gastrointestinal symptoms other than noted. Heartburn. Genitourinary: No genitourinary symptoms other than noted. Testicular pain. Endocrine: No endocrine symptoms other than noted. Hematologic: No easy bleeding and no tendency for easy bruising. Musculoskeletal: No musculoskeletal symptoms other than noted. Back pain, muscle cramps, and pain localized to one or more joints. Neurological: No neurological symptoms other than noted and no fainting passing out with needles or medical procedures. Psychological: No psychological symptoms other than noted. Skin: No skin symptoms other than noted. Dry skin. Mental Status Includes: Mental Status from this encounter No Mental Status Recorded Functional Status Includes: Functional Status from this encounter No Functional Status Recorded Physical Exam Includes: Physical Exam from this encounter Allergies Includes: Active Allergies No Known Allergies Encounters Encounter Provider Location Date Check-In Time Check-Out Time Diagnosis PAIN MANAGEMENT NEW [facility] 02/17/20 8:44AM 9:34AM Chronic Pain Syndrome,Lumb ago,Lumbar Radiculopathy ,Left Hip Pain Insurance Includes: Active Insurance Policies Plan Name Member ID Group # Subscriber Relationship Effect mable Dates 1 - MEDICARE PART A CLAIMS/NGS [id number] JOLLY CHRISTINE Self 2 - MED[place] MEDICARE SECOND [id number] JOLLY CHRISTINE Self Clinical Notes Includes: Clinical Notes from this encounter No Clinical Notes Recorded
--- OUTSIDE RECORDS SUMMARY | 2024-08-27 07:36 | XMS_ITS | Clinical Summary ---
Author Organization [facility] Address [address] [place] [address] Phone Care Team Providers Care Wire Stitcher Machine Name Role Phone CLAUDIA GEORGE PA-C Primary Care Provider [phone] ANGELA BENTLEY MD Unavailable [phone] Reason for Visit and Chief Complaint The Chief Complaint is: Telehealth for MRI results Plan of Treatment No Plan of Treatment Recorded Assessments Includes: Assessments from this encounter Findings - Sacroiliitis [M46.1 - Sacroiliitis, not elsewhere classified] - Last Documented On 03/14/2021 10:05AM ; [facility] - Lumbar spondylosis with radiculopathy [M47.26 - Other spondylosis with radiculopathy, lumbar region] - Last Documented On 03/14/2021 10:05AM ; [facility] - Lumbosacral spinal stenosis [M48.07 - Spinal stenosis, lumbosacral region] - Last Documented On 03/14/2021 10:05AM ; [facility] - Lumbar radiculopathy [M54.16 - Radiculopathy, lumbar region] - Last Documented On 03/14/2021 10:05AM ; [facility] Medical Equipment - Implanted Devices Includes: Current Devices No Medical Equipment Recorded Medications Includes: Medications discussed during this encounter and other current Medications Current Medications (continue as prescribed) glipiZIDE 10 MG Oral Tablet 02/16/2021 Provider: Diagnosis: Last Documented On 11:44AM By Mariza MOTTA ; [facility] Lisinopril 5 MG Oral Tablet 02/16/2021 Provider: Diagnosis: Last Documented On 11:45AM By Mariza MOTTA ; [facility] metFORMIN HCl 1000 MG Oral Tablet 02/16/2021 Provide r: Diagnosis: Last Documented On 11:46AM By Mariza MOTTA ; [facility] Pravastatin Sodium 20 MG Oral Tablet 02/16/2021 Prov ider: Diagnosis: Last Documented On 11:46AM By Mariza MOTTA ; [facility] Medications Administered Includes: Administered Medications from this encounter No Administered Medications Recorded Vital Signs Includes: Vital Signs from this encounter Vital Name 03/14/2021 08:44A Blood Pressure Sitting (mmHg) 140/82 BP Cuff Size Regular Pulse Rate-Sitting (bpm) 45 Pulse Rhythm Regular Height (in) 71 Weight (lb) 190 Body Mass Index (kg/m2) 26.5 Body Surface Area (m2) 2.1 Pain Level 2 Oxygen Saturation (%) 98 Last Documented: On 03/14/2021 8:44AM ; [facility] Results Includes: Results discussed during this encounter No Results Recorded For Specified Dates History of Present Illness Includes: History of Present Illness from this encounter HPI This visit was conducted via telecommunication system (telephone) with real time communication between the patient and the provider. Patient consent for phone visit obtained today. Patient is a follow up to review imaging. He reports symptoms have somewhat improved. Patient describes low back pain with intermittent pain into the groin. We discussed imaging and possible treatment options including injections and therapy. He will start with therapy and f/u in 6 weeks. Imaging: MRI L spine 02/27/21: Mild chronic anterior wedging T12-L4 vertebral bodies. DDD L2-S1, most severe at L3-4 and L5-S1. Moderate to severe facet arthropathy L3-S1 with moderate bilateral foraminal narrowing L3-S1, mild central canal stenosis L3-4, moderate central canal stenosis L4-5 and mild again at L5-S1. . - Allergy list reviewed - Medication reconciliation performed Social History Description Last Updated Smoker 02/16/2021 Last Documented On 1 8:44AM ; [facility] [PHQ-2] Patient Health Questionnaire 2 i tem total score: 15 (Scale: 0-6) 02/16/2021 Last Documented On 1 8:44AM ; [facility] Smoking packs of cigarettes per day One fifth 02/16/2021 Last Documented On 1 8:44AM ; [facility] Smoking Status Unknown Procedures and Surgical History Includes: Procedures from this encounter Procedures Code Diagnosis Performing Provider Service L ocation Service Date use of tobacco assessment performed 1000F Last Documented On 1 8:45AM ; [facility] standardized depression screening: negative for symptoms 3351F Last Documented On 1 8:46AM ; [facility] review of medications documented 1160F Last Documented On 1 8:45AM ; [facility] assessment of suicide risk performed Last Documented On 1 8:46AM ; [facility] screening for adult depression: impressi on and score not recorded Last Documented On 1 8:46AM ; [facility] screening for adult depression: impressi on and score two Last Documented On 1 8:46AM ; [facility] Medical History Includes: Medical History addressed during this encounter No Medical History Recorded Family History Includes: Family History addressed during this encounter No Family History Recorded Review of Systems Includes: Review of Systems from this encounter Cardiovascular: No chest pain or discomfort. Pulmonary: No dyspnea. Musculoskeletal: Lower back pain. Neurological: No motor disturbances and no sensory disturbances. Skin: No rash. Mental Status Includes: Mental Status from this encounter No Mental Status Recorded Functional Status Includes: Functional Status from this encounter No Functional Status Recorded Physical Exam Includes: Physical Exam from this encounter Allergies Includes: Active Allergies No Known Allergies Encounters Encounter Provider Location Date Check-In Time Check-Out Time Diagnosis [facility] 03/14/20 21 8:45AM 9:19AM Sacroiliitis,Lumb ar Radiculopathy,Spo ndylosis with Radiculopathy Lumbar Region,Spinal Stenosis Lumbosacral Insurance Includes: Active Insurance Policies Plan Name Member ID Group # Subscriber Relationship Effect mable Dates 1 - MEDICARE PART A CLAIMS/NGS [id number] JOLLY Vazquez [place] Self 2 - [place] MEDICARE SECOND [id number] JOLLY ZULETAAVENTO Self Clinical Notes Includes: Clinical Notes from this encounter No Clinical Notes Recorded
--- OUTSIDE RECORDS SUMMARY | 2024-08-27 07:36 | XMS_ITS | Encounter Summary ---
Author Organization [facility] - [facility] Address [address] 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
--- OUTSIDE RECORDS SUMMARY | 2024-08-27 07:36 | XMS_ITS ---
Care Plan - [facility] Created on: August 27, 2024 JOLLY CHRISTINE : 1955 Sex: Male Author Organization [facility] Address [address] [place] [address] Phone Care Team Providers Care Sport Psychologist Name Role Phone CLAUDIA GEORGE PA-C Primary Care Provider [phone] ANGELA BENTLEY MD [facility] [phone]
--- OUTSIDE RECORDS SUMMARY | 2024-08-27 07:37 | XMS_ITS | Clinical Summary ---
Author Organization [facility] Address [facility] [facility] [place] [address] [place] [address] Care Team Providers Care Floral Design Teacher Name Role Phone Jaylene Swenson [facility] Primary Care Provider [phone] Allergies Active Allergy Reactions Criticality Noted Date Comments Amoxicillin Other (see comment) 02/21/2020 Reaction: Unknown, , Potassium Other (see comment) 02/21/2020 Reaction: Unknown, Medications glipiZIDE 10 MG tablet Take 10 mg by mouth 2 (two) times daily. 0 Active metFORMIN 1000 MG tablet Take 1,000 mg by mouth 2 (two) times daily. 0 Active pravastatin 20 MG tablet Take 20 mg by mouth daily. 0 Active methylPREDNISol one, SHARI, 4 MG tablet 4 mg Oral Tablet Therapy Pack. Follow package directions 1 each 0 Active vancomycin 125 MG capsule TAKE 1 CAPSULE BY MOUTH EVERY 6 HOURS 0 Active Active Problems Problem Noted Date Diagnosed Date Biceps tendonitis on right 02/21/2020 Family History Medical History Relation Comments No Known Problems Brother 1 No Known Problems Brother 2 No Known Problems Maternal Grandfather No Known Problems Maternal Grandmother Arthritis Mother Diabetes Mother Hyperlipidemia Mother Hypertension Mother Lung Disease Paternal Grandfather Cancer Paternal Grandmother No Known Problems Sister 1 No Known Problems Sister 2 Relation Status Comments Brother 1 Alive Brother 2 Alive Father Maternal Grandfather Maternal Grandmother Mother Alive Paternal Grandfather Paternal Grandmother Sister 1 Alive Sister 2 Alive Social History Tobacco Use Types Packs/Day Years Used Date Smoking Tobacco: Every Day Cigarettes 0.3 20 Smokeless Tobacco: Never Alcohol Use Standard Drinks/Week Comments Not Currently 0 (1 standard drink = 0.6 oz pur e alcohol) Sex and Gender Information Value Date Recorded Sex Assigned at Not on file 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 Gender Identity Not on file Sexual Orientation Not on file Last Filed Vital Signs Vital Sign Reading Time Taken Comments Blood Pressure - - Pulse - - Temperature - - Respiratory Rate - - Oxygen Saturation - - Inhaled Oxygen Concentration - - Weight 86.2 kg (190 lb) 03/06/2020 1:58 PM CDT Height 181.6 cm (5' 11.5 ) 03/06/2020 1:58 PM CD T Body Mass Index 26.13 03/06/2020 1:58 PM CDT Plan of Treatment Health Maintenance Due Date Last Done Comments Colorectal Cancer Screening Colonoscopy (10 Years) 1955 Pneumococcal Vaccine: 65+ Ye ars (1 of 2 - PCV) 1960 Hepatitis C 1972 DTaP, Tdap and Td Vaccines ( 1 - Tdap) 1973 Zoster Vaccines (1 of 2) 2004 Annual Medicare Wellness Visit 11/16/2019 COVID-19 Vaccine ( - 2023-2 5 season) 2024 Influenza Adult (#1) 2024 04/24/2018 RSV Immunization or 60+ Years (1 - 1-dose 75+ series) 2029 Meningococcal B Vaccine Aged Out No l onger eligible based on patient's age to complete this topic Meningococcal Vaccine Aged Out No ruben eric eligible based on patient's age to complete this topic RSV Immunizations Under 20 Months Aged Out No longer eligible based on patient's age to complete this topic Insurance MEDICARE MEDICAID Care Teams Floral Design Teacher Relationship Specialty Start Date End Date Jaylene Swenson FNP-BC [address] [place] [address] PCP - General NURSE PRACTITIONER 02/17/20
--- OUTSIDE RECORDS SUMMARY | 2024-08-27 07:37 | XMS_ITS ---
Author Organization [facility] Address [address] [place] [address] Phone Care Team Providers Care Computer Aided Design Drafter Name Role Phone CLAUDIA GEORGE PA-C Primary Care Provider [phone] ANGELA BENTLEY MD [phone] Plan of Treatment Instructions to patient Intervention and counseling on cessation of tobacco use : Patient recieved smoking cessation handout Last Documented On 1 8:58AM ; [facility] Assessments Includes: Assessments for all patient encounters Findings Encounter Date Lumbar radiculopathy TELEHEALTH with [facility] 03/14/2021 Last Documented On 1 10:05AM ; [facility] Lumbar spondylosis with radiculopathy [facility] 03/14/2021 Last Documented On 1 10:05AM ; [facility] Lumbosacral spinal stenosis TELEHEALTH with TAMM IE L [facility] 03/14/2021 Last Documented On 1 10:05AM ; [facility] Sacroiliitis TELEHEALTH with WILFRIDO L [facility] 03/14/2021 Last Documented On 1 10:05AM ; [facility] Chronic pain syndrome PAIN MANAGEMENT NE W CONSULT with WILFRIDO L [facility]AN [facility] 02/16/2021 Last Documented On 1 9:01AM ; [facility] Left Hip pain PAIN MANAGEMENT NEW CONSULT with WILFRIDO L [facility] 02/16/2021 Last Documented On 1 9:01AM ; [facility] Lumbago PAIN MANAGEMENT NEW CONSULT with WILFRIDO L [facility] 02/16/2021 Last Documented On 1 9:01AM ; [facility] Lumbar radiculopathy PAIN MANAGEMENT NEW CONSULT with WILFRIDO [facility] 02/16/2021 Last Documented On 1 9:01AM ; [facility] Instructions Includes: Instructions for all patient encounters Instructions to patient Intervention and counseling on cessation of tobacco use : Patient recieved smoking cessation handout Last Documented On 1 8:58AM ; [facility] Medical Equipment - Implanted Devices Includes: Current and historical Devices No Medical Equipment Recorded Medications Includes: Current and historical Medications Current Medications (continue as prescribed) glipiZIDE 10 MG Oral Tablet 02/16/2021 Provider: Diagnosis: Last Documented On 11:44AM By Mariza MOTTA ; [facility] Lisinopril 5 MG Oral Tablet 02/16/2021 Provider: Diagnosis: Last Documented On 11:45AM By Mariza MOTTA ; [facility] metFORMIN HCl 1000 MG Oral Tablet 02/16/2021 Provide r: Diagnosis: Last Documented On 11:46AM By Mariza MOTTA ; [facility] Pravastatin Sodium 20 MG Oral Tablet 02/16/2021 Prov ider: Diagnosis: Last Documented On 11:46AM By Mariza MOTTA ; [facility] Medications Administered Includes: Administered Medications in patient's chart No Administered Medications Recorded Results Includes: Results from 08/27/2023 through 08/27/2024 No Results Recorded For Specified Dates History of Present Illness History of Present Illness not supported for this document type No History of Present Illness Recorded Social History Description Last Updated Smoker 02/16/2021 Last Documented On 1 9:01AM ; [facility] [PHQ-2] Patient Health Questionnaire 2 i tem total score: 15 (Scale: 0-6) 02/16/2021 Last Documented On 1 9:01AM ; [facility] No consumption of alcohol 02/16/2021 Last Documented On 1 9:01AM ; [facility] Not using drugs 02/16/2021 Last Documented On 9:01AM ; [facility] Smoking packs of cigarettes per day One fifth 02/16/2021 Last Documented On 9:01AM ; [facility] Smoking Status Unknown Procedures and Surgical History Surgical History Last Updated No Pacemaker 02/16/2021 Last Documented On 9:01AM ; [facility] Medical History Includes: Medical History in patient's chart Description Last Updated Currently wearing eyeglasses 02/16/2021 Last Documented On 1 9:01AM ; [facility] No Pain Pump 02/16/2021 Last Documented On 9:01AM ; [facility] No Spinal cord stimulator 02/16/2021 Last Documented On 9:01AM ; [facility] Please list all illnesses/co nditions you have been diagnosed with: Diabetes high blood pressure cluster headaches 02/16/2021 Last Documented On 9:01AM ; [facility] Please list all surgeries: None 02/17/20 Last Documented On 9:01AM ; [facility] Family History Includes: Family History in patient's chart Description Last Updated Family history of ischemic heart disease 02/16/2021 Last Documented On 9:01AM ; [facility] Review of Systems Review of Systems not supported for this document type No Review of Systems Recorded Mental Status No Mental Status Recorded Functional Status No Functional Status Recorded Physical Exam Physical Exam not supported for this document type No Physical Exam Recorded Allergies Includes: Active, inactive, and resolved Allergies No Known Allergies Insurance Includes: Active Insurance Policies Plan Name Member ID Group # Subscriber Relationship Effect mable Dates 1 - MEDICARE PART A CLAIMS/NGS [id number] JOLLY CHRISTINE Self 2 - MEDICAID [place] MEDICARE SECOND [id number] JOLLY CHRISTINE Self Clinical Notes Includes: Signed Clinical Notes starting from 08/16/2022 No Clinical Notes Recorded
[2024-08-27 07:49] LABS: Basophils Absolute Auto 0.03 K/mm3 (0.00-0.10); Basophils Percent Auto 0.3 % (0.0-1.0); Eosinophils Percent Auto 6.4 % (1.0-6.0); Hemoglobin 9.3 g/dL (12.4-15.3); Immature Granulocyte Absolute 0.04 K/mm3 (0.00-0.00); Immature Granulocyte Percent A 0.4 % (0.0-0.0); Lymphocytes Absolute Auto 2.68 K/mm3 (1.10-4.50); Lymphocytes Percent Auto 28.7 % (18.0-42.0); Mean Corpuscular HGB Conc 32.1 g/dL (32-36); Mean Corpuscular Hemoglobin 29.8 pg (27.0-31.0); Mean Corpuscular Volume 92.9 fL (78.0-102.0); Mean Platelet Volume 10.6 fl (8.7-11.0); Monocytes Absolute Auto 1.09 K/mm3 (0.10-0.90); Monocytes Percent Auto 11.7 % (2.0-11.0); Neutrophils Percent Auto 52.5 % (50.0-70.0); Platelet Count Result 196 K/mm3 (150-420); Red Blood Count 3.12 M/mm3 (4.70-6.10); Red Cell Distribution Width 13.9 % (11.6-14.4); White Blood Count 9.3 K/mm3 (4.8-10.8)
[2024-08-27 08:09] LABS: Hemoglobin A1C 6.2 % (<5.7)
[2024-08-27 08:37] LABS: Alanine Aminotransferase 26 U/L (16-63); Albumin Level 3.6 g/dL (3.4-5.0); Alkaline Phosphatase 86 U/L (46-116); Anion Gap 7 mmol/L (4-12); Aspartate Amino Transferase 13 U/L (15-37); Bilirubin,Total 0.3 mg/dL (0.00-1.00); Blood Urea Nitrogen 28 mg/dL (7-18); Calcium 9.1 mg/dL (8.5-10.1); Carbon Dioxide 29 mmol/L (21-32); Chloride 103 mmol/L (98-108); Cholesterol 109 mg/dL (0-200); Estimated Glomerular Filt Rate 24; Glucose 93 mg/dL (70-99); HDL Direct 43 mg/dL (40-60); LDL Cholesterol Calculated 52 mg/dL (<130); Osmolality Calculated 293 mOsm/kg (285-295); Potassium 4.7 mmol/L (3.5-5.1); Sodium 139 mmol/L (136-145); Thyroid Stimulating Hormone 2.05 uIU/mL (0.36-3.74); Triglycerides 68 mg/dL (0-150)
== END 2024-08-27 07:31 | disposition home or self-care (01) ==
PROVIDERS: PCP Physician Assistant; Visit Provider Physician Assistant
DX: E78.5 Hyperlipidemia, unspecified (principal); E11.65 Type 2 diabetes mellitus with hyperglycemia
CPT/HCPCS: 36415; 80053; 80061; 83036; 84443; 85025

== ENCOUNTER 2024-09-15 16:25 | Outpatient (CLI) | payer OTHER, SELFPAY ==
--- OUTSIDE RECORDS SUMMARY | 2024-09-15 16:31 | XMS_ITS ---
Care Plan - [facility] Created on: September 15, 2024 JOLLY CHRISTINE : 1955 Sex: Male Author Organization [facility] Address [address] [place] [phone] Phone Care Team Providers Care Culinary Chef Name Role Phone CLAUDIA GEORGE PA-C Primary Care Provider [phone] ANGELA BENTLEY MD [facility] [phone]
--- OUTSIDE RECORDS SUMMARY | 2024-09-15 16:31 | XMS_ITS | Encounter Summary ---
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
--- OUTSIDE RECORDS SUMMARY | 2024-09-15 16:31 | XMS_ITS | Clinical Summary ---
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
--- OUTSIDE RECORDS SUMMARY | 2024-09-15 16:31 | XMS_ITS | Clinical Summary ---
Author Organization [facility] Address [address] [place] [address] Phone Care Team Providers Care Powder And Primer Canning Leader Name Role Phone CLAUDIA GEORGE PA-C Primary Care Provider [phone] ANGELA BENTLEY MD Unavailable [phone] Reason for Visit and Chief Complaint The Chief Complaint is: Telehealth for MRI results Plan of Treatment No Plan of Treatment Recorded Assessments Includes: Assessments from this encounter Findings - Sacroiliitis [M46.1 - Sacroiliitis, not elsewhere classified] - Last Documented On 03/14/2021 10:05AM ; [facility] - Lumbar spondylosis with radiculopathy [M47.26 - Other spondylosis with radiculopathy, lumbar region] - Last Documented On 03/14/2021 10:05AM ; [facility] - Lumbosacral spinal stenosis [M48.07 - Spinal stenosis, lumbosacral region] - Last Documented On 03/14/2021 10:05AM ; [facility] - Lumbar radiculopathy [M54.16 - Radiculopathy, lumbar region] - Last Documented On 03/14/2021 10:05AM ; [facility] Medical Equipment - Implanted Devices Includes: Current Devices No Medical Equipment Recorded Medications Includes: Medications discussed during this encounter and other current Medications Current Medications (continue as prescribed) glipiZIDE 10 MG Oral Tablet 02/16/2021 Provider: Diagnosis: Last Documented On 11:44AM By Mariza MOTTA ; [facility] Lisinopril 5 MG Oral Tablet 02/16/2021 Provider: Diagnosis: Last Documented On 11:45AM By Mariza MOTTA ; [facility] metFORMIN HCl 1000 MG Oral Tablet 02/16/2021 Provide r: Diagnosis: Last Documented On 11:46AM By Mariza MOTTA ; [facility] Pravastatin Sodium 20 MG Oral Tablet 02/16/2021 Prov ider: Diagnosis: Last Documented On 11:46AM By Mariza MOTTA ; [facility] Medications Administered Includes: Administered Medications [...] 98 Last Documented: On 03/14/2021 8:44AM ; [facility] Results Includes: Results discussed during [...] 02/16/2021 Last Documented On 1 8:44AM ; [facility] [PHQ-2] Patient Health Questionnaire 2 i tem total score: 15 (Scale: 0-6) 02/16/2021 Last Documented On 1 8:44AM ; [facility] Smoking packs of cigarettes per day One fifth 02/16/2021 Last Documented On 1 8:44AM ; [facility] Smoking Status Unknown Procedures and Surgical History Includes: Procedures from this encounter Procedures Code Diagnosis Performing Provider Service L ocation Service Date use of tobacco assessment performed 1000F Last Documented On 1 8:45AM ; [facility] standardized depression screening: negative for symptoms 3351F Last Documented On 1 8:46AM ; [facility] review of medications documented 1160F Last Documented On 1 8:45AM ; [facility] assessment of suicide risk performed Last Documented On 1 8:46AM ; [facility] screening for adult depression: impressi on and score not recorded Last Documented On 1 8:46AM ; [facility] screening for adult depression: impressi on and score two Last Documented On 1 8:46AM ; [facility] Medical History Includes: Medical History [...] Time Check-Out Time Diagnosis TELEHEALTH [facility] 03/14/20 21 8:45AM 9:19AM Sacroiliitis,Lumb ar Radiculopathy,Spo ndylosis with Radiculopathy Lumbar Region,Spinal Stenosis Lumbosacral Insurance Includes: Active Insurance Policies Plan Name Member ID Group # Subscriber Relationship Effect mable Dates 1 - MEDICARE PART A CLAIMS/NGS [id number] JOLLY Vazquez [place] Self 2 - MED[place] MEDICARE SECOND [id number] JOLLY ZULETAAVENTO Self Clinical Notes Includes: Clinical Notes from this encounter No Clinical Notes Recorded
--- OUTSIDE RECORDS SUMMARY | 2024-09-15 16:31 | XMS_ITS | Clinical Summary ---
Author Organization [facility] Address [address] [place] [address] Care Team Providers Care Paving Foreman Name Role Phone Ros Huerta Primary Care Provider [phone] Allergies Active Allergy Reactions Criticality Noted Date Comments Amoxicillin Other (See comments) Reaction: Unknown, , Potassium Other (See comments) Reaction: Unknown, Medications glipiZIDE (GLUCOTROL) 10 mg tablet Take 10 mg by mouth 2 (two) times a day 11/26/2019 Active metFORMIN (GLUCOPHAGE) 1,000 mg tablet Take 1,000 mg by mouth 2 (two) times a day 12/15/2019 Active pravastatin (PRAVACHOL) 20 mg tablet Take 20 mg by mouth daily 11/26/2019 Active lisinopriL (PRINIVIL,ZESTRI L) 5 mg tablet TAKE 1 TABLET BY MOUTH EVERY DAY 90 tablet 06/05/2021 Active Active Problems Problem Noted Date Diagnosed Date Current smoker 11/08/2014 Hypertension 08/05/2014 Overview (11/01/2016): Hypertension Hypersomnia 08/05/2014 Overview (11/01/2016): Hypersomnia Diabetes mellitus 08/05/2014 Overview (11/01/2016): Diabetes Snoring 08/05/2014 Overview (11/01/2016): Snoring Ventricular tachycardia 06/06/2014 Fatigue 05/23/2014 Hypercholesterolemia 05/23/2014 Medical History Medical History Date Comments Type 2 diabetes mellitus (HCC) D iabetes type 2; Comments: MPB 08/03/2014 - Hypertension Hypertension Hyperlipidemia Hyperlipidemia; Comments: MPB 08/03/2014 - Family History Medical History Relation Name Comments Cancer Father Family history of cancer - (Added by Conv) Coronary artery disease Father Col[place] nary artery disease; /Family history of coronary artery disease - (Added by Conv) Diabetes Father Family history of diabetes mellitus - (Added by Conv) Hypertension Father Family history of hypertension - (Added by TW Conv) Stroke Father Family history of stroke - (Added by Conv) Cancer Mother Family history of cancer - (Added by Conv) Diabetes Mother Family history of diabetes mellitus - (Added by Conv) Hypertension Mother Family history of hypertension - (Added by Conv) Relation Name Status Comments Father Mother Social History Tobacco Use Types Packs/Day Years Used Date Smoking Tobacco: Every Day Comments:Smoking History Pac ks/day: 5 Cigarettes Alcohol Use Standard Drinks/Week Comments No 0 (1 standard drink = 0.6 oz pur e alcohol) Sex and Gender Information Value Date Recorded Sex Assigned at Not on file 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 Gender Identity Not on file Sexual Orientation Not on file Obstetrics History Last Filed Vital Signs Vital Sign Reading Time Taken Comments Blood Pressure 126/70 12/05/2020 11:37 AM CDT Pulse 49 12/05/2020 11:37 AM CDT Temperature 36.4 C (97.5 F) 01/04/2020 8:50 AM CDT Respiratory Rate 18 01/04/2020 8:50 AM CDT Oxygen Saturation 99% 11/08/2014 1:49 PM CDT Inhaled Oxygen Concentration - - Weight 88.1 kg (194 lb 3.2 oz) 12/05/2020 11:37 AM CDT Height 182.9 cm (6') 12/05/2020 11:37 AM CDT Body Mass Index 26.34 12/05/2020 11:37 AM CDT Plan of Treatment Not on file Insurance [facility] MEDICARE Care Teams Paving Foreman Relationship Specialty Start Date End Date Ros Huerta PA [address] [place] [address] PCP - General Emergency Medicine 11/30/20
--- OUTSIDE RECORDS SUMMARY | 2024-09-15 16:31 | XMS_ITS | Clinical Summary ---
Author Organization [facility] Address [address] [place] [address] Phone Care Team Providers Care Cabin Man Name Role Phone CLAUDIA GEORGE PA-C Primary Care Provider [phone] ANGELA BENTLEY MD [facility] [phone] Reason for Visit and Chief Complaint The Chief Complaint is: PT STATES THAT HE WAS REFERRED BY CLAUDIA GEORGE FOR GROIN PAIN/LEFT HIP PAIN Plan of Treatment Instructions to patient Intervention and counseling on cessation of tobacco use : Patient recieved smoking cessation handout Last Documented On 8:58AM ; [facility] Assessments Includes: Assessments from this encounter Findings - Left Hip pain [M25.552 - Pain in left hip] - Last Documented On 03/12/2021 9:01AM ; [facility] - Lumbago [M54.5 - Low back pain] - Last Documented On 03/12/2021 9:01AM ; [facility] - Lumbar radiculopathy [M54.16 - Radiculopathy, lumbar region] - Last Documented On 03/12/2021 9:01AM ; [facility] - Chronic pain syndrome [G89.4 - Chronic pain syndrome] - Last Documented On 03/12/2021 9:01AM ; [facility] Instructions Includes: Instructions from this encounter Instructions to patient Intervention and counseling on cessation of tobacco use : Patient recieved smoking cessation handout Last Documented On 8:58AM ; [facility] Medical Equipment - Implanted Devices Includes: Current Devices No Medical Equipment Recorded Medications Includes: Medications discussed during this encounter and other current Medications Current Medications (continue as prescribed) glipiZIDE 10 MG Oral Tablet 02/16/2021 Provider: Diagnosis: Last Documented On 11:44AM By Mariza MOTTA ; [facility] Lisinopril 5 MG Oral Tablet 02/16/2021 Provider: Diagnosis: Last Documented On 11:45AM By Mariza MOTTA ; [facility] metFORMIN HCl 1000 MG Oral Tablet 02/16/2021 Provide r: Diagnosis: Last Documented On 11:46AM By Mariza MOTTA ; [facility] Pravastatin Sodium 20 MG Oral Tablet 02/16/2021 Prov ider: Diagnosis: Last Documented On 1 11:46AM By Mariza MOTTA ; [facility] Medications Administered Includes: Administered Medications from this encounter No Administered Medications Recorded Vital Signs Includes: Vital Signs from this encounter Vital Name 02/16/2021 09:01A Blood Pressure Sitting R 156/92 Pulse Rate-Sitting (bpm) 45 Height (in) 71 Weight (lb) 196 Body Mass Index (kg/m2) 27.3 Body Surface Area (m2) 2.1 Pain Level 8 Oxygen Saturation (%) 97 Last Documented: On 02/16/2021 9:02AM ; [facility] Results Includes: Results discussed during this [...] Smoker 02/16/2021 Last Documented On 9:01AM ; [facility] [PHQ-2] Patient Health Questionnaire 2 i tem total score: 15 (Scale: 0-6) 02/16/2021 Last Documented On 9:01AM ; [facility] No consumption of alcohol 02/16/2021 Last Documented On 9:01AM ; [facility] Not using drugs 02/16/2021 Last Documented On 9:01AM ; [facility] Smoking packs of cigarettes per day One fifth 02/16/2021 Last Documented On 9:01AM ; [facility] Smoking Status Unknown Procedures and Surgical History Includes: Procedures from this encounter Procedures Code Diagnosis Performing Provider Service L ocation Service Date intervention and counseling on cessation of tobacco use : Patient recieved smoking cessation handout 4000F Last Documented On 8:58AM ; [facility] use of tobacco assessment performed 1000F Last Documented On 8:58AM ; [facility] review of medications documented 1160F Last Documented On 8:55AM ; [facility] Clinical summary provided to patient Last Documented On 1 8:55AM ; [facility] Surgical History Last Updated No Pacemaker 02/16/2021 Last Documented On 9:01AM ; [facility] Medical History Includes: Medical History addressed during this encounter Description Last Updated Currently wearing eyeglasses 02/16/2021 Last Documented On 9:01AM ; [facility] No Pain Pump 02/16/2021 Last Documented On 9:01AM ; [facility] No Spinal cord stimulator 02/16/2021 Last Documented On 9:01AM ; [facility] Please list all illnesses/co nditions you have been diagnosed with: Diabetes high blood pressure cluster headaches 02/16/2021 Last Documented On 1 9:01AM ; [facility] Please list all surgeries: None 02/17/20 Last Documented On 1 9:01AM ; [facility] Family History Includes: Family History addressed during this encounter Description Last Updated Family history of ischemic heart disease 02/16/2021 Last Documented On 1 9:01AM ; [facility] Review of Systems Includes: Review of Systems [...] Diagnosis PAIN MANAGEMENT NEW CONSULT [facility] 02/17/20 8:44AM 9:34AM Chronic Pain Syndrome,Lumb ago,Lumbar Radiculopathy ,Left Hip Pain Insurance Includes: Active Insurance Policies Plan Name Member ID Group # Subscriber Relationship Effect mable Dates 1 - MEDICARE PART A CLAIMS/NGS [id number] JOLLY CHRISTINE Self 2 - [place] MEDICARE SECOND [id number] JOLLY CHRISTINE Self Clinical Notes Includes: Clinical Notes from this encounter No Clinical Notes Recorded
--- OUTSIDE RECORDS SUMMARY | 2024-09-15 16:31 | XMS_ITS ---
Author Organization [facility] Address [address] [place] [address] Phone Care Team Providers Care Clam Dredge Boat Captain Name Role Phone CLAUDIA GEORGE PA-C Primary Care Provider [phone] ANGELA BENTLEY MD [phone] Plan of Treatment Instructions to patient Intervention and counseling on cessation of tobacco use : Patient recieved smoking cessation handout Last Documented On 1 8:58AM ; [facility] Assessments Includes: Assessments for all patient encounters Findings Encounter Date Lumbar radiculopathy TELEHEALTH with [facility] L [facility] 03/14/2021 Last Documented On 1 10:05AM ; [facility] Lumbar spondylosis with radiculopathy [facility]21 Last Documented On 1 10:05AM ; [facility] Lumbosacral spinal stenosis TELEHEALTH with [facility] IE L E[facility] 03/14/2021 Last Documented On 1 10:05AM ; [facility] Sacroiliitis TELEHEALTH with [facility]O L [facility] 03/14/2021 Last Documented On 1 10:05AM ; [facility] Chronic pain syndrome PAIN MANAGEMENT NE W CONSULT with WILFRIDO L ETHAN [facility] 02/16/2021 Last Documented On 1 9:01AM ; [facility] Left Hip pain PAIN MANAGEMENT NEW CONSULT with WILFRIDO L ETHAN [facility] 02/16/2021 Last Documented On 1 9:01AM ; [facility] Lumbago PAIN MANAGEMENT NEW CONSULT with WILFRIDO L ETHAN [facility] 02/16/2021 Last Documented On 1 9:01AM ; [facility] Lumbar radiculopathy PAIN MANAGEMENT NEW CONSULT with WILFRIDO OWEN-LIZ 02/16/2021 Last Documented On 1 9:01AM ; [facility] Instructions Includes: Instructions for all patient encounters Instructions to patient Intervention and counseling on cessation of tobacco use : Patient recieved smoking cessation handout Last Documented On 1 8:58AM ; [facility] Medical Equipment - Implanted Devices Includes: Current and historical Devices No Medical Equipment Recorded Medications Includes: Current and historical Medications Current Medications (continue as prescribed) glipiZIDE 10 MG Oral Tablet 02/16/2021 Provider: Diagnosis: Last Documented On 11:44AM By Mariza MOTTA ; [facility] Lisinopril 5 MG Oral Tablet 02/16/2021 Provider: Diagnosis: Last Documented On 11:45AM By Mariza MOTTA ; [facility] metFORMIN HCl 1000 MG Oral Tablet 02/16/2021 Provide r: Diagnosis: Last Documented On 11:46AM By Mariza MOTTA ; [facility] Pravastatin Sodium 20 MG Oral Tablet 02/16/2021 Prov ider: Diagnosis: Last Documented On 11:46AM By Mariza MOTTA ; [facility] Medications Administered Includes: Administered Medications in patient's chart No Administered Medications Recorded Results Includes: Results from 09/15/2023 through 09/15/2024 No Results Recorded For Specified Dates History of Present Illness History of Present Illness not supported for this document type No History of Present Illness Recorded Social History Description Last Updated Smoker 02/16/2021 Last Documented On 1 9:01AM ; [facility] [PHQ-2] Patient Health Questionnaire 2 i tem total score: 15 (Scale: 0-6) 02/16/2021 Last Documented On 1 9:01AM ; [facility] No consumption of alcohol 02/16/2021 Last Documented On 1 9:01AM ; [facility] Not using drugs 02/16/2021 Last Documented On 1 9:01AM ; [facility] Smoking packs of cigarettes per day One fifth 02/16/2021 Last Documented On 9:01AM ; [facility] Smoking Status Unknown Procedures and Surgical History Surgical History Last Updated No Pacemaker 02/16/2021 Last Documented On 9:01AM ; [facility] Medical History Includes: Medical History in patient's chart Description Last Updated Currently wearing eyeglasses 02/16/2021 Last Documented On 1 9:01AM ; [facility] No Pain Pump 02/16/2021 Last Documented On 9:01AM ; [facility] No Spinal cord stimulator 02/16/2021 Last Documented On 9:01AM ; [facility] Please list all illnesses/co nditions you have been diagnosed with: Diabetes high blood pressure cluster headaches 02/16/2021 Last Documented On 9:01AM ; [facility] Please list all surgeries: None 02/17/20 Last Documented On 9:01AM ; [facility] Family History Includes: Family History in patient's chart Description Last Updated Family history of ischemic heart disease 02/16/2021 Last Documented On 9:01AM ; [facility] Review of Systems Review of Systems not [...] Dates 1 - MEDICARE PART A CLAIMS/NGS [id number] JOLLY CHRISTINE Self 2 - [place] MEDICARE SECOND [id number] JOLLY CHRISTINE Self Clinical Notes Includes: Signed Clinical Notes starting from 08/16/2022 No Clinical Notes Recorded
--- OUTSIDE RECORDS SUMMARY | 2024-09-15 16:31 | XMS_ITS | Referral Summary ---
Author Organization [facility] Address [address] [place] [address] Care Team Providers Care Dormitory Keeper Name Role Phone Ros Huerta Primary Care Provider [phone] Allergies Active Allergy Reactions Criticality Noted Date [...] Ventricular tachycardia 06/06/2014 Fatigue 05/23/2014 Hypercholesterolemia 05/23/2014 Social History Tobacco Use Types Packs/Day Years Used Date Smoking Tobacco: Every Day Comments:Smoking History Pac ks/day: 5 Cigarettes Alcohol Use Standard Drinks/Week Comments No 0 (1 standard drink = 0.6 oz pur e alcohol) Sex and Gender Information Value Date Recorded Sex Assigned at Not on file 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
[2024-09-15 17:21] LABS: Alanine Aminotransferase 35 U/L (16-63); Albumin Level 4.2 g/dL (3.4-5.0); Alkaline Phosphatase 118 U/L (46-116); Anion Gap 11 mmol/L (4-12); Aspartate Amino Transferase 26 U/L (15-37); Bilirubin,Total 0.3 mg/dL (0.00-1.00); Blood Urea Nitrogen 29 mg/dL (7-18); Calcium 9.8 mg/dL (8.5-10.1); Carbon Dioxide 24 mmol/L (21-32); Chloride 106 mmol/L (98-108); Estimated Glomerular Filt Rate 19; Glucose 104 mg/dL (70-99); Osmolality Calculated 297 mOsm/kg (285-295); Potassium 5.2 mmol/L (3.5-5.1); Sodium 141 mmol/L (136-145); Total Protein 6.9 g/dL (6.4-8.2)
== END 2024-09-15 16:26 | disposition home or self-care (01) ==
DX: R60.0 Localized edema (principal)
CPT/HCPCS: 36415; 80053

== ENCOUNTER 2024-09-22 13:30 | Outpatient (CLI) | payer OTHER, SELFPAY ==
[2024-09-22 14:20] LABS: Basophils Absolute Auto 0.03 K/mm3 (0.00-0.10); Basophils Percent Auto 0.3 % (0.0-1.0); Eosinophils Absolute Auto 0.64 K/mm3 (0.02-0.50); Eosinophils Percent Auto 6.9 % (1.0-6.0); Hemoglobin 9.3 g/dL (12.4-15.3); Immature Granulocyte Absolute 0.03 K/mm3 (0.00-0.00); Immature Granulocyte Percent A 0.3 % (0.0-0.0); Lymphocytes Absolute Auto 2.64 K/mm3 (1.10-4.50); Lymphocytes Percent Auto 28.4 % (18.0-42.0); Mean Corpuscular HGB Conc 33.2 g/dL (32-36); Mean Corpuscular Hemoglobin 30.5 pg (27.0-31.0); Mean Corpuscular Volume 91.8 fL (78.0-102.0); Monocytes Percent Auto 9.7 % (2.0-11.0); Neutrophils Absolute Auto 5.04 K/mm3 (1.70-7.20); Neutrophils Percent Auto 54.4 % (50.0-70.0); Platelet Count Result 237 K/mm3 (150-420); Red Blood Count 3.05 M/mm3 (4.70-6.10); Red Cell Distribution Width 13.7 % (11.6-14.4); White Blood Count 9.3 K/mm3 (4.8-10.8)
[2024-09-22 14:57] LABS: Creatinine Urine 35.38 mg/dL (40-278); MALB Creatinine Ratio 224.7 mg/g (0-30); Microalbumin Urine Random 79.5 mg/L
--- OUTSIDE RECORDS SUMMARY | 2024-09-22 15:23 | XMS_ITS | Clinical Summary ---
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
--- OUTSIDE RECORDS SUMMARY | 2024-09-22 15:23 | XMS_ITS ---
Author Organization [facility] Address [address] [place] [address] Phone Care Team Providers Care General Farm Hand Name Role Phone CLAUDIA GEORGE PA-C Primary Care Provider [phone] ANGELA BENTLEY MD [phone] Plan of Treatment Instructions to patient Intervention and counseling on cessation of tobacco use : Patient recieved smoking cessation handout Last Documented On 1 8:58AM ; [facility] Assessments Includes: Assessments for all patient encounters Findings Encounter Date Lumbar radiculopathy TELEHEALTH with [facility] 03/14/2021 Last Documented On 1 10:05AM ; [facility] Lumbar spondylosis with radiculopathy [facility]21 Last Documented On 1 10:05AM ; [facility] Lumbosacral spinal stenosis TELEHEALTH with [facility] IE [facility] 03/14/2021 Last Documented On 1 10:05AM ; [facility] Sacroiliitis [facility]/14[facility]2021 Last Documented On 1 10:05AM ; [facility] Chronic pain syndrome PAIN MANAGEMENT NE W CONSULT with [facility]O L [facility] 02/16/2021 Last Documented On 1 9:01AM ; [facility] Left Hip pain PAIN MANAGEMENT NEW CONSULT with [facility]O L [facility] 02/16/2021 Last Documented On 1 9:01AM ; [facility] Lumbago PAIN MANAGEMENT NEW CONSULT with [facility]O L [facility] 02/16/2021 Last Documented On 1 9:01AM ; [facility] Lumbar radiculopathy PAIN MANAGEMENT NEW CONSULT with WILFRIDO OWEN-LIZ 02/16/2021 Last Documented On 1 9:01AM ; [facility] Instructions Includes: Instructions for all patient encounters Instructions to patient Intervention and counseling on cessation of tobacco use : Patient recieved smoking cessation handout Last Documented On 1 8:58AM ; [facility] Medical Equipment - Implanted Devices Includes: Current and historical Devices No Medical Equipment Recorded Medications Includes: Current and historical Medications Current Medications (continue as prescribed) glipiZIDE 10 MG Oral Tablet 02/16/2021 Provider: Diagnosis: Last Documented On 11:44AM By Mariza MOTTA ; [facility] Lisinopril 5 MG Oral Tablet 02/16/2021 Provider: Diagnosis: Last Documented On 11:45AM By Mariza MOTTA ; [facility] metFORMIN HCl 1000 MG Oral Tablet 02/16/2021 Provide r: Diagnosis: Last Documented On 11:46AM By Mariza MOTTA ; [facility] Pravastatin Sodium 20 MG Oral Tablet 02/16/2021 Prov ider: Diagnosis: Last Documented On 11:46AM By Mariza MOTTA ; [facility] Medications Administered Includes: Administered Medications in patient's chart No Administered Medications Recorded Results Includes: Results from 09/22/2023 through 09/22/2024 No Results Recorded For Specified Dates History of Present Illness History of Present Illness not supported for this document type No History of Present Illness Recorded Social History Description Last Updated Smoker 02/16/2021 Last Documented On 1 9:01AM ; [facility] [PHQ-2] Patient Health Questionnaire 2 i tem total score: 15 (Scale: 0-6) 02/16/2021 Last Documented On 1 9:01AM ; [facility] No consumption of alcohol 02/16/2021 Last Documented On 1 9:01AM ; [facility] Not using drugs 02/16/2021 Last Documented On 1 9:01AM ; [facility] Smoking packs of cigarettes per day One fifth 02/16/2021 Last Documented On 9:01AM ; [facility] Smoking Status Unknown Procedures and Surgical History Surgical History Last Updated No Pacemaker 02/16/2021 Last Documented On 9:01AM ; [facility] Medical History Includes: Medical History in patient's chart Description Last Updated Currently wearing eyeglasses 02/16/2021 Last Documented On 1 9:01AM ; [facility] No Pain Pump 02/16/2021 Last Documented On 9:01AM ; [facility] No Spinal cord stimulator 02/16/2021 Last Documented On 9:01AM ; [facility] Please list all illnesses/co nditions you have been diagnosed with: Diabetes high blood pressure cluster headaches 02/16/2021 Last Documented On 9:01AM ; [facility] Please list all surgeries: None 02/17/20 Last Documented On 9:01AM ; [facility] Family History Includes: Family History in patient's chart Description Last Updated Family history of ischemic heart disease 02/16/2021 Last Documented On 9:01AM ; [facility] Review of Systems Review of Systems not [...] Dates 1 - MEDICARE PART A CLAIMS/NGS [id number] JOLLY CHRISTINE Self 2 - [place] MEDICARE SECOND [id number] JOLLY CHRISTINE Self Clinical Notes Includes: Signed Clinical Notes starting from 08/16/2022 No Clinical Notes Recorded
--- OUTSIDE RECORDS SUMMARY | 2024-09-22 15:23 | XMS_ITS ---
Care Plan - [facility] Created on: September 22, 2024 JOLLY CHRISTINE : 1955 Sex: Male Author Organization [facility] Address [address] [place] [address] Phone Care Team Providers Care Ply Bander Name Role Phone CLAUDIA GEORGE PA-C Primary Care Provider [phone] ANGELA BENTLEY MD [facility] [phone]
--- OUTSIDE RECORDS SUMMARY | 2024-09-22 15:23 | XMS_ITS | Clinical Summary ---
Author Organization [facility] Address [address] [place] [address] Phone Care Team Providers Care Roll Changer Name Role Phone CLAUDIA GEORGE PA-C Primary Care Provider [phone] ANGELA BENTLEY MD Unavailable [phone] Reason for Visit and Chief Complaint The Chief Complaint is: Telehealth for MRI results Plan of Treatment No Plan of Treatment Recorded Assessments Includes: Assessments from this encounter Findings - Sacroiliitis [M46.1 - Sacroiliitis, not elsewhere classified] - Last Documented On 03/14/2021 10:05AM ; [facility] - Lumbar spondylosis with radiculopathy [M47.26 - Other spondylosis with radiculopathy, lumbar region] - Last Documented On 03/14/2021 10:05AM ; [facility] - Lumbosacral spinal stenosis [M48.07 - Spinal stenosis, lumbosacral region] - Last Documented On 03/14/2021 10:05AM ; [facility] - Lumbar radiculopathy [M54.16 - Radiculopathy, lumbar region] - Last Documented On 03/14/2021 10:05AM ; [facility] Medical Equipment - Implanted Devices Includes: Current Devices No Medical Equipment Recorded Medications Includes: Medications discussed during this encounter and other current Medications Current Medications (continue as prescribed) glipiZIDE 10 MG Oral Tablet 02/16/2021 Provider: Diagnosis: Last Documented On 11:44AM By Mariza MOTTA ; [facility] Lisinopril 5 MG Oral Tablet 02/16/2021 Provider: Diagnosis: Last Documented On 11:45AM By Mariza MOTTA ; [facility] metFORMIN HCl 1000 MG Oral Tablet 02/16/2021 Provide r: Diagnosis: Last Documented On 11:46AM By Mariza MOTTA ; [facility] Pravastatin Sodium 20 MG Oral Tablet 02/16/2021 Prov ider: Diagnosis: Last Documented On 11:46AM By Mariza MOTTA ; [facility] Medications Administered Includes: Administered Medications from this [...] 98 Last Documented: On 03/14/2021 8:44AM ; [facility] Results Includes: Results discussed during this encounter [...] 02/16/2021 Last Documented On 1 8:44AM ; [facility] [PHQ-2] Patient Health Questionnaire 2 i tem total score: 15 (Scale: 0-6) 02/16/2021 Last Documented On 1 8:44AM ; [facility] Smoking packs of cigarettes per day One fifth 02/16/2021 Last Documented On 1 8:44AM ; [facility] Smoking Status Unknown Procedures and Surgical History Includes: Procedures from this encounter Procedures Code Diagnosis Performing Provider Service L ocation Service Date use of tobacco assessment performed 1000F Last Documented On 1 8:45AM ; [facility] standardized depression screening: negative for symptoms 3351F Last Documented On 1 8:46AM ; [facility] review of medications documented 1160F Last Documented On 1 8:45AM ; [facility] assessment of suicide risk performed Last Documented On 1 8:46AM ; [facility] screening for adult depression: impressi on and score not recorded Last Documented On 1 8:46AM ; [facility] screening for adult depression: impressi on and score two Last Documented On 1 8:46AM ; [facility] Medical History Includes: Medical History addressed during [...] Time Check-Out Time Diagnosis TELEHEALTH [facility] 03/14/20 21 8:45AM 9:19AM Sacroiliitis,Lumb ar Radiculopathy,Spo ndylosis with Radiculopathy Lumbar Region,Spinal Stenosis Lumbosacral Insurance Includes: Active Insurance Policies Plan Name Member ID Group # Subscriber Relationship Effect mable Dates 1 - MEDICARE PART A CLAIMS/NGS [id number] JOLLY Vazquez [place] Self 2 - MED[place] MEDICARE SECOND [id number] JOLLY ZULETAAVENTO Self Clinical Notes Includes: Clinical Notes from this encounter No Clinical Notes Recorded
--- OUTSIDE RECORDS SUMMARY | 2024-09-22 15:23 | XMS_ITS | Encounter Summary ---
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 Gender Identity Not on file Sexual Orientation Not on file documented as of this encounter Plan of Treatment Upcoming Encounters Date Type Department Care Team (Late st Contact Info) Description 09/29/2024 10:42 AM SENIOR CONTROLS ANALYST [facility] [place] [facility] [place] [address] Dolores Aly MD [address] [place] [address] 09/29/2024 10:42 AM SENIOR CONTROLS ANALYST Anesthesia [place] [address] Dionna Medina CRNA [address] [place], [place] [address]juan [place] [address] 09/29/2024 10:42 AM SENIOR CONTROLS ANALYST - 09/29/2024 11:12 AM SENIOR CONTROLS ANALYST [facility] [place] [facility] [place] [address] Dolores Aly MD [address] [place] [address] CATARACT EXTRACTION WITH INTRAOCULAR LENS IMPLANTATION-RIGHT 10/06/2024 9:36 AM CDT Hospital [facility] [place] [address] Dolores Aly MD [address] [place] [address] 10/06/2024 9:36 AM CDT - 10/06/2024 10:06 AM CDT Surgery [place] OR [address] [place] [address] [place] [address] Dolores Aly MD [address] [place] [address] CATARACT EXTRACTION WITH INTRAOCULAR LENS IMPLANTATION-LEFT Scheduled Procedures Name Priority Associated Diagnoses Date/Ti me CATARACT REMOVAL WITH IOL IMPLANT H25.13, CATARACT 09/29/2024 10:42 AM SENIOR CONTROLS ANALYST CATARACT REMOVAL WITH IOL IMPLANT H25.13, CATARACT 10/06/2024 9:36 AM CDT documented as of this encounter Visit Diagnoses Not on filedocumented in this encounter Additional Health Concerns Infection Onset Date Last Indicated Resolved Time COVID-19 Rule Out 03/24/2020 03/24/2020 03/27/2020 9:01 AM CDT documented as of this encounter Care Teams Cable Weaver Relationship Specialty Start Date End Date Jaylene Swenson FNP-BC [address] [place] [address] PCP - General NURSE PRACTITIONER 02/17/20 documented as of this encounter
--- OUTSIDE RECORDS SUMMARY | 2024-09-22 15:24 | XMS_ITS | CONTINUITY OF CARE DOCUMENT ---
Author Name lizette bauer Address Unknown Organization [facility] Office Address [address] [place] [address] Phone [phone] Care Team Providers Care Keyboarding Clerk Name Role Phone Juan Manuel GAMBOA, Minda Unavailable Dinorah Ward MD Unavailable Dinorah Ward MD Unavailable PROBLEMS Condition Status [...] In-person encounter Office Visit Minda Zambrano MD [place] [facility] Family History Coronary Heart Disease male [...] Payer name Policy type / Coverage type [facility] FAMILY [facility] Medicaid 2 [id number] TREATMENT PLAN Date Name Performer : O rders: C omplete Echo (CPT-[id number]) M obile Cardiac Tele (CPT-[id number]) Minda Zambrano MD : H is updated medication list for this problem includes: Aspirin 81 Mg Tabs (Aspirin) ..... One tab. daily Lisinopril 2.5 Mg Tabs (Lisinopril) ..... One tab. daily Metformin Hcl 1000 Mg Tabs (Metformin hcl) ..... 1 tablet bid Orders: C omplete Echo ([id number]) M obile Cardiac Tele (CPT-[id number]) Minda Zambrano MD : H is updated medication list for this problem includes: Aspirin 81 Mg Tabs (Aspirin) ..... One tab. daily Lisinopril 2.5 Mg Tabs (Lisinopril) ..... One tab. daily Orders: C omplete Echo (CPT-[id number]) M obile Cardiac Tele (CPT-[id number]) Minda Zambrano MD : H is updated medication list for this problem includes: Aspirin 81 Mg Tabs (Aspirin) ..... One tab. daily Lisinopril 2.5 Mg Tabs (Lisinopril) ..... One tab. daily Orders: C omplete Echo (CPT-[id number]) M obile Cardiac Tele (CPT-[id number]) Minda Zambrano MD : O rders: C omplete Echo (CPT-[id number]) M obile Cardiac Tele (CPT-05502) Minda Zambrano MD Date Name Mobile Cardiac Tele Complete Echo
--- OUTSIDE RECORDS SUMMARY | 2024-09-22 15:24 | XMS_ITS | Referral Summary ---
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
--- OUTSIDE RECORDS SUMMARY | 2024-09-22 15:24 | XMS_ITS | Clinical Summary ---
Author Organization [facility] Address [address] [place] [address] Phone Care Team Providers Care Lumpia Wrapper Maker Name Role Phone CLAUDIA GEORGE PA-C Primary Care Provider [phone] ANGELA BETNLEY MD [facility] [phone] Reason for Visit and Chief Complaint The Chief Complaint is: PT STATES THAT HE WAS REFERRED BY CLAUDIA GEORGE FOR GROIN PAIN/LEFT HIP PAIN Plan of Treatment Instructions to patient Intervention and counseling on cessation of tobacco use : Patient recieved smoking cessation handout Last Documented On 8:58AM ; [facility] Assessments Includes: Assessments from this encounter Findings - Left Hip pain [M25.552 - Pain in left hip] - Last Documented On 03/12/2021 9:01AM ; [facility] - Lumbago [M54.5 - Low back pain] - Last Documented On 03/12/2021 9:01AM ; [facility] - Lumbar radiculopathy [M54.16 - Radiculopathy, lumbar region] - Last Documented On 03/12/2021 9:01AM ; [facility] - Chronic pain syndrome [G89.4 - Chronic pain syndrome] - Last Documented On 03/12/2021 9:01AM ; [facility] Instructions Includes: Instructions from this encounter Instructions to patient Intervention and counseling on cessation of tobacco use : Patient recieved smoking cessation handout Last Documented On 8:58AM ; [facility] Medical Equipment - Implanted Devices Includes: Current Devices No Medical Equipment Recorded Medications Includes: Medications discussed during this encounter and other current Medications Current Medications (continue as prescribed) glipiZIDE 10 MG Oral Tablet 02/16/2021 Provider: Diagnosis: Last Documented On 11:44AM By Mariza MOTTA ; [facility] Lisinopril 5 MG Oral Tablet 02/16/2021 Provider: Diagnosis: Last Documented On 11:45AM By Mariza MOTTA ; [facility] metFORMIN HCl 1000 MG Oral Tablet 02/16/2021 Provide r: Diagnosis: Last Documented On 11:46AM By Mariza MOTTA ; [facility] Pravastatin Sodium 20 MG Oral Tablet 02/16/2021 Prov ider: Diagnosis: Last Documented On 1 11:46AM By Mariza MOTTA ; [facility] Medications Administered Includes: Administered Medications from this encounter No Administered Medications Recorded Vital Signs Includes: Vital Signs from this encounter Vital Name 02/16/2021 09:01A Blood Pressure Sitting R 156/92 Pulse Rate-Sitting (bpm) 45 Height (in) 71 Weight (lb) 196 Body Mass Index (kg/m2) 27.3 Body Surface Area (m2) 2.1 Pain Level 8 Oxygen Saturation (%) 97 Last Documented: On 02/16/2021 9:02AM ; [facility] Results Includes: Results discussed during this [...] Smoker 02/16/2021 Last Documented On 9:01AM ; [facility] [PHQ-2] Patient Health Questionnaire 2 i tem total score: 15 (Scale: 0-6) 02/16/2021 Last Documented On 9:01AM ; [facility] No consumption of alcohol 02/16/2021 Last Documented On 9:01AM ; [facility] Not using drugs 02/16/2021 Last Documented On 9:01AM ; [facility] Smoking packs of cigarettes per day One fifth 02/16/2021 Last Documented On 9:01AM ; [facility] Smoking Status Unknown Procedures and Surgical History Includes: Procedures from this encounter Procedures Code Diagnosis Performing Provider Service L ocation Service Date intervention and counseling on cessation of tobacco use : Patient recieved smoking cessation handout 4000F Last Documented On 8:58AM ; [facility] use of tobacco assessment performed 1000F Last Documented On 8:58AM ; [facility] review of medications documented 1160F Last Documented On 8:55AM ; [facility] Clinical summary provided to patient Last Documented On 1 8:55AM ; [facility] Surgical History Last Updated No Pacemaker 02/16/2021 Last Documented On 9:01AM ; [facility] Medical History Includes: Medical History addressed during this encounter Description Last Updated Currently wearing eyeglasses 02/16/2021 Last Documented On 9:01AM ; [facility] No Pain Pump 02/16/2021 Last Documented On 9:01AM ; [facility] No Spinal cord stimulator 02/16/2021 Last Documented On 9:01AM ; [facility] Please list all illnesses/co nditions you have been diagnosed with: Diabetes high blood pressure cluster headaches 02/16/2021 Last Documented On 1 9:01AM ; [facility] Please list all surgeries: None 02/17/20 Last Documented On 1 9:01AM ; [facility] Family History Includes: Family History addressed during this encounter Description Last Updated Family history of ischemic heart disease 02/16/2021 Last Documented On 1 9:01AM ; [facility] Review of Systems Includes: Review of Systems [...] Diagnosis PAIN MANAGEMENT NEW CONSULT WILFRIDO [facility] 02/17/20 8:44AM 9:34AM Chronic Pain Syndrome,Lumb ago,Lumbar Radiculopathy ,Left Hip Pain Insurance Includes: Active Insurance Policies Plan Name Member ID Group # Subscriber Relationship Effect mable Dates 1 - MEDICARE PART A CLAIMS/NGS [id number] JOLLY CHRISTINE Self 2 - [place] MEDICARE SECOND [id number] JOLLY CHRISTINE Self Clinical Notes Includes: Clinical Notes from this encounter No Clinical Notes Recorded
--- OUTSIDE RECORDS SUMMARY | 2024-09-22 15:24 | XMS_ITS | Encounter Summary ---
Author Organization [facility] Address [address] [place] [address] Care Team Providers Care Web Support Engineer Name Role Phone Jaylene Swenson [facility] Primary Care Provider [phone] Encounter Details Date Type Department Care Team (Latest Contact Info) Description 09/22/2024 Travel Social History Tobacco Use Types Packs/Day Years Used Date Smoking Tobacco: Every Day Cigarettes 0.3 20 Smokeless Tobacco: Never Alcohol Use Standard Drinks/Week Comments Not Currently 0 (1 standard drink = 0.6 oz pur e alcohol) Sex and Gender Information Value Date Recorded Sex Assigned at Not on file Legal Sex Male 10:44 PM BODY TRIMMER Gender Identity Not on file Sexual Orientation Not on file documented as of this encounter Plan of Treatment Upcoming Encounters Date Type Department Care Team (Late st Contact Info) Description 09/29/2024 10:42 AM BODY TRIMMER Hospital Encounter [place] [facility] [place] [address] Dolores Aly MD [address] [place] [address] 09/29/2024 10:42 AM BODY TRIMMER [facility] [place] [facility] [place] [address] Dionna Medina CRNA [address] [place] [address] 09/29/2024 10:42 AM BODY TRIMMER - 09/29/2024 11:12 AM BODY TRIMMER Surgery [place] [facility] [place] [address] Dolores Aly MD [address] [place] [address] CATARACT EXTRACTION WITH INTRAOCULAR LENS IMPLANTATION-RIGHT 10/06/2024 9:36 AM CDT Hospital Encounter [place] [address] [place] [address] [place] [address] Dolores Aly MD [address] [place] [address] 10/06/2024 9:36 AM CDT - 10/06/2024 10:06 AM CDT Surgery [place] [address] [place] [address] [place] [address] Dolores Aly MD [address] [place] [address] CATARACT EXTRACTION WITH INTRAOCULAR LENS IMPLANTATION-LEFT Scheduled Procedures Name Priority Associated Diagnoses Date/Ti me CATARACT REMOVAL WITH IOL IMPLANT H25.13, CATARACT 09/29/2024 10:42 AM BODY TRIMMER CATARACT REMOVAL WITH IOL IMPLANT H25.13, CATARACT 10/06/2024 9:36 AM CDT documented as of this encounter Visit Diagnoses Not on filedocumented in this encounter Care Teams Web Support Engineer Relationship Specialty Start Date End Date Jaylene Swenson FNP-BC [address] [place] [address] PCP - General NURSE PRACTITIONER 02/17/20 documented as of this encounter
--- OUTSIDE RECORDS SUMMARY | 2024-09-22 15:24 | XMS_ITS | Clinical Summary ---
Author Organization [facility] Address [address] [place] [address] Care Team Providers Care Learning And Development Specialist Name Role Phone Jaylene Swenson [facility] Primary Care Provider [phone] Allergies Active Allergy Reactions Criticality Noted Date Comments Amoxicillin Other (see comment) 02/21/2020 Reaction: Unknown, , Medications metFORMIN 1000 MG tablet Take 1 tablet (1,000 mg total) by mouth 2 (two) times daily. 0 Active pravastatin 20 MG tablet Take 1 tablet (20 mg total) by mouth daily. 0 Active amLODIPine (NORVASC) 5 MG tablet Take 1 tablet (5 mg total) by mouth daily. Active glipiZIDE 10 MG tablet Take 1 tablet (10 mg total) by mouth 2 (two) times daily. 0 09/22/19 25 Discontinu ed(Error) methylPREDNISo SHARI montgomery, 4 MG tablet 4 mg Oral Tablet Therapy Pack. Follow package directions 1 each 0 09/22/19 25 Discontinu ed(Error) vancomycin 125 MG capsule TAKE 1 CAPSULE BY MOUTH EVERY 6 HOURS 0 09/22/19 25 Discontinu ed(Error) Active Problems Problem Noted Date Diagnosed Date Biceps tendonitis on right 02/21/2020 Encounters Date Type Department Care Team Description 09/22/2024 Travel from Last 3 Months Family History Medical History Relation Comments No [...] on file Legal Sex Male 10:44 PM HUMAN RESOURCES ADMINISTRATOR Gender Identity Not on file Sexual Orientation Not on file Last Filed Vital Signs Vital Sign Reading Time Taken Comments Blood Pressure - - Pulse - - Temperature - - Respiratory Rate - - Oxygen Saturation - - Inhaled Oxygen Concentration - - Weight 88 kg (194 lb) 09/22/2024 1:27 PM HUMAN RESOURCES ADMINISTRATOR Height 182.9 cm (6') 09/22/2024 1:27 PM HUMAN RESOURCES ADMINISTRATOR Body Mass Index 26.31 09/22/2024 1:27 PM HUMAN RESOURCES ADMINISTRATOR Plan of Treatment Upcoming Encounters Date Type Department Care Team (Late st Contact Info) Description 09/29/2024 10:42 AM HUMAN RESOURCES ADMINISTRATOR [facility] [address] [place] [address] Dolores Aly MD [address] [place] [address] 09/29/2024 10:42 AM HUMAN RESOURCES ADMINISTRATOR [facility]est[facility] [place] [address] Dionna Medina CRNA [address] [place] [address] 09/29/2024 10:42 AM HUMAN RESOURCES ADMINISTRATOR - 09/29/2024 11:12 AM HUMAN RESOURCES ADMINISTRATOR Surgery [place] [address] Dolores Aly MD [address] [place] [address] CATARACT EXTRACTION WITH INTRAOCULAR LENS IMPLANTATION-RIGHT 10/06/2024 9:36 AM CDT Hospital [place] [place] [address] Dolores Aly MD [address] [place] [address] 10/06/2024 9:36 AM CDT - 10/06/2024 10:06 AM CDT Surgery [place] [address] [place] [address] Dolores Aly MD [address] [place] [address] CATARACT EXTRACTION WITH INTRAOCULAR LENS IMPLANTATION-LEFT Scheduled Procedures Name Priority Associated Diagnoses Date/Ti me CATARACT REMOVAL WITH IOL IMPLANT H2.13, CATARACT 09/29/2024 10:42 AM HUMAN RESOURCES ADMINISTRATOR CATARACT REMOVAL WITH IOL IMPLANT H25.13, CATARACT 10/06/2024 9:36 AM CDT Health Maintenance Due Date Last Done Comments Colorectal Cancer Screening Colonoscopy (10 Years) 1954 Pneumococcal Vaccine: 65+ Ye ars (1 of 2 - PCV) 1960 Hepatitis C 1972 DTaP, Tdap and Td Vaccines ( 1 - Tdap) 1973 Zoster Vaccines (1 of 2) 2004 AAA SCREENING 11/16/2019 Annual Medicare Wellness Visit 11/16/2019 COVID-19 Vaccine (1 - 2023-2 5 season) 2024 Influenza Adult [...] patient's age to complete this topic Insurance [facility] Care Teams Learning And Development Specialist Relationship Specialty Start Date End Date Jaylene Swenson FNP-BC [address] [place] [address] PCP - General NURSE PRACTITIONER 02/17/20
[2024-09-22 15:53] LABS: Anion Gap 12 mmol/L (4-12); Blood Urea Nitrogen 27 mg/dL (7-18); Calcium 9.4 mg/dL (8.5-10.1); Carbon Dioxide 23 mmol/L (21-32); Chloride 104 mmol/L (98-108); Estimated Glomerular Filt Rate 19; Glucose 103 mg/dL (70-99); Osmolality Calculated 293 mOsm/kg (285-295); Potassium 5.4 mmol/L (3.5-5.1); Sodium 139 mmol/L (136-145)
[2024-09-23 16:01] LABS: Prostate Specific Antigen 2.2 ng/mL (< OR = 4.0)
== END 2024-09-22 13:31 | disposition home or self-care (01) ==
DX: R79.89 Other specified abnormal findings of blood chemistry (principal); Z12.5 Encounter for screening for malignant neoplasm of prostate
CPT/HCPCS: 36415; 80048; 82043; 84153; 85025; G0103

== ENCOUNTER 2024-09-24 08:17 | Outpatient (CLI) | payer OTHER, SELFPAY | END 2024-09-24 08:18 | disposition home or self-care (01) | DX: R79.89 Other specified abnormal findings of blood chemistry (principal) | CPT/HCPCS: 76770 ==

== ENCOUNTER 2024-09-27 14:53 | Outpatient (CLI) | payer OTHER, SELFPAY ==
[2024-09-27 16:27] LABS: Anion Gap 13 mmol/L (4-12); Blood Urea Nitrogen 36 mg/dL (7-18); Carbon Dioxide 26 mmol/L (21-32); Chloride 103 mmol/L (98-108); Estimated Glomerular Filt Rate 15; Glucose 134 mg/dL (70-99); Osmolality Calculated 304 mOsm/kg (285-295); Potassium 5.5 mmol/L (3.5-5.1); Prostate Specific Antigen 2.5 ng/mL (< OR = 4.0); Sodium 142 mmol/L (136-145)
== END 2024-09-27 14:54 | disposition home or self-care (01) ==
LOC: CHSLAB 15:10
DX: R79.89 Other specified abnormal findings of blood chemistry (principal)
CPT/HCPCS: 36415; 80048; 84153